=== PATIENT | female | born 1960 | race Caucasian/White ===

== ENCOUNTER 2016-03-24 02:04 | Day surgery (SDC) | payer OTHER ==
[~2016-03-24] VITALS: Ht 167.6 cm; Wt 88.2 kg
[2016-03-24] VITALS (18 sets, daily range): BP systolic 116–158; BP diastolic 68–89; PULSE 68–94; RESP 7–24; O2SAT 87–98
[~2016-03-24 02:04] MED LIST: BUPR150T12 PO; CEFU500T61 PO; CHOL40003 PO; CORRECTOL PO; DICY20TA10 PO; DULO60CA61 PO; HYDR-3740 PO; IMI100 PO; OMEP20CA11 PO; [UNRECOGNIZED DRUG - CODE] PO; chantix PO
[2016-03-24] MEDS ORDERED: Ondansetron 2 mg/mL 2 mL Inj ONE (02:05)
[2016-03-24] MEDS ORDERED: Dexamethasone 4 mg/mL Inj ONE (02:05)
[2016-03-24] MEDS ORDERED: CeFAZolin 2 Gm/50 mL D5W IV Premix IV ONE (06:00)
[2016-03-24 07:33] LABS: BASOPHILS % (AUTO) 0.4 % (0-3); MONOCYTES % (AUTO) 4.5 % (4-12); Mean Corpuscular Hemoglobin 31.7 pg (27.0-35.0); Mean Corpuscular Volume 92.1 fL (81-100); Platelet Count 127 bil/L (150-400)
[2016-03-24 07:46] LABS: INR 0.88 ratio
--- NOTE | 2016-03-24 07:54 | PCM.HPANE ---
Patient Data Surgeon Admitting Provider: Attending Provider:Lisbeth Sidhu MD Primary Care Physician:Curt Schmid Other Provider:Stephon James Anesthesia Reason for Visit Left Staghorn Kidney Stone Ht/WT & BMI Height (Feet): 5 Height (Inches): 6.00 Weight (Kilograms): 86.300 Body Mass Index 30.58 Allergies Coded Allergies: No Known Allergies (Verified Allergy, Unknown, 01/13/16) Past Anesthesia History Anesthesia History: Denies:: Abnormal Airway, Anesthesia Reactions, Difficult Intubation, Fam Anesthesia Reaction, Fam Malignant Hypertherm, Malignant Hyperthermia Diabetes History Hx Diabetes?: No MRSA MRSA: No Medications Hypertension Medication: No Home Meds Incl Beta Iliana: No Reported Medications [Correctol] No Conflict Check20 Mg PO 03/23/16 Ondansetron (Zuplenz)8 Mg Film8 Mg PO Q8H PRN For Nausea 03/21/16 Cholecalciferol (Vitamin D3) (Vitamin D3)4,000 Unit Capsule4,000 Unit PO DAILY 03/21/16 Omeprazole 20 Mg Capsule.dr20 Mg PO DAILY Ref 0 03/21/16 Sumatriptan (Imitrex)100 Mg Vyqoem024 Mg PO Q2H PRN migraine MR x1/ NTE 200mg/24hrs 03/21/16 Hydrocodone-Acetaminophen 10-325 mg 1 Each Tablet0.5-1 Tablet PO Q8H PRN For Pain Ref 0 03/21/16 Duloxetine 60 Mg Capsule.dr60 Mg PO DAILY Ref 0 03/21/16 Dicyclomine 20 Mg Nxqlpu76 Mg PO QID PRN For GI Cramps Ref 0 03/21/16 [chantix] Unknown Strength No Conflict CheckUnknown Dose BID for 3 days 03/21/16 Cefuroxime Axetil (Cefuroxime)500 Mg Ttpedk068 Mg PO Q12H 03/21/16 Bupropion ER 150 Mg Tablet.er150 Mg PO BID Ref 0 03/21/16 Discontinued Reported Medications Amoxicillin 500 Mg Ofhfsik386 Mg PO TID Ref 0 01/13/16 Trazodone 100 Mg Zbmciy221 Mg PO MORNING Ref 0 01/13/16 Cholecalciferol (Vitamin D3) (Vitamin D3)4,000 Unit Capsule4,000 Unit PO DAILY 05/24/15 Ondansetron (Zuplenz)8 Mg Film8 Mg PO TID 05/24/15 Sumatriptan (Imitrex)100 Mg Qvsukr505 Mg PO BID 05/24/15 Hydrocodone-Acetaminophen 10-325 mg 1 Each Tablet0.5-1 Tab PO TID PRN For Pain Ref 0 05/24/15 Omeprazole 20 Mg Capsule.dr20 Mg PO BID Ref 0 04/07/15 Trazodone 100 Mg Lbzjjx212 Mg PO HS #30 TABLET Ref 0 09/02/14 Bupropion 100 Mg Skuptk302 Mg PO TID 30 Days Ref 0 09/02/14 Duloxetine 60 Mg Capsule.dr60 Mg PO DAILY 30 Days Ref 0 09/02/14 Discontinued Scripts Ondansetron ODT 8 Mg Tab.rapdis8 Mg PO QID #20 TABLET Prov:Delmar Michelle MD 01/13/16 Cefuroxime Axetil (Ceftin)500 Mg Mwlhqk878 Mg PO BID #20 TAB Prov:Delmar Michelle MD 01/13/16 History HEENT History: Positive for:: Hearing Problem Denies:: Abnormal Airway Cataracts Difficult Intubation Dysphagia Glaucoma Sinus Problem TMJ Teeth Condition: Missing Teeth Other HEENT Pertinent History: recent implant surgery upper teeth Hx of Heart Problems?: No Cardiovascular History: Denies:: AICD Abdominal Aortic Aneurism Atrial Fibrillation Congestive Heart Failure Edema Heart Murmur Hypertension Irregular Heartbeat Pacemaker Hx of Respiratory Problem?: No Respiratory History: Denies:: Asthma COPD Dyspnea Emphysema Oxygen Administration Pneumonia Tuberculosis Use of C-PAP Machine Use of Inhalers / NEBS Hx Neurologic Problems?: Yes Neurological History: Positive for:: Headaches (migraines) Denies:: CVA Dementia Multiple Sclerosis Parkinson's Disease Seizures (seizures with migraines- last one year ago) Hx of GI Problems?: Yes Gastrointestinal History: Positive for:: Gastroesphageal Reflux (on omeprazole ) Gastrointestinal Bleeding Heartburn Rectal Bleeding Denies:: Cirrhosis Diverticulitis Gall Bladder Disease Hiatal Hernia Liver Disease Hx of Problems?: Yes Genitourinary History: Positive for:: Kidney Stones (left kidney stone current admission problem) Urinary Tract Infection (hx of - not current) Other Pertinent History: past hx kidney stones, passed spontaneously Female Hx: Denies:: Currently (tubal ligation) Problems with Breasts? Skin History: Denies:: History Skin Disorders? Pressure Ulcers Hx Musculoskeletal Problems?: Yes Musculoskeletal History: Positive for:: Back Injury ("lots of back aches") Musculoskeletal Trauma (right knee injury- not yet worked up) Denies:: Degenerative Joint Fibromyalgia Joint Replacement Myasthenia Gravis Osteoarthritis Rheumatoid Arthritis Systemic Lupus Hx of Psycho/Social Problems?: Yes Psycho Social History: Positive for:: Anxiety Hx Depression Hx Surgeries?: Yes (2 C SECTIONS, tubal ) Hx Any Other Health Problems?: Yes Other History: Denies:: Cancer Thyroid Disease History Blood Transfusions: Positive for:: Accept Blood Products? Denies:: Blood Transfuse Reaction Blood Transfusions Hx Diabetes: No Hx Alcohol Use: No (not for 4-5 years ago )Hx Substance Use: Yes (marijuana ( uses with migraines)) Smoking Status: Former Smoker Have You Smoked inLast 12 mo: Yes Stop/Bang Treated for Sleep Apnea?: No Do You Have a CPAP Machine?: No S-Snoring: Do You Snore Loudly: No T-Tired: feel tired, fatigued: Yes O-Obsered: Observed not breath: No P-Blood Pressure: treated: No B- Body Mass Index > 35 kg/m2: No A- Age over 50: Yes N- Neck Large Circumference: No G- Gender Male: No JOSEE Total Score: 2 JOSEE Risk Assessment: Low Risk, <3 Yes Risk Assessment Category Category 1A: Patient has history of documented sleep apnea, and HAS NOT received any narcotic, sedative or anesthesia administration during this stay. Category 1B: Patient has history of documented sleep apnea, and HAS received any narcotic , sedative or anesthesia administration during this stay Category 2: Patient has SUSPECTED Obstructive Sleep Apnea, and HAS received any narcotic , sedative or anesthesia administration during this stay. Category 3: Patient has SUSPECTED Obstructive Sleep Apnea and HAS NOT received narcotic, sedative or anesthesia administration during this stay. Category 4: Outpatient in Procedural Areas with known sleep apnea or who screen positive for High Risk via the STOP/BANG questionnaire. Exam Exam Vital Signs Vital Signs Date Time Temp Pulse Resp B/P Pulse Ox O2 Delivery O2 Flow Rate FiO2 03/24/16 07:23 37.0 77 18 116/68 Room Air General Appearance: Alert, Oriented X3, Cooperative, No Acute Distress HEENT/AIRWAY: MP 2 Lungs: Clear to Auscultation, Normal Air Movement Heart: Exam Unremarkable, Regular Rate/Rhythm, No Murmurs/Rubs/Gallops Meds/Labs/Diagnostics Labs Test 03/24/16 06:50 White Blood Count 6.7th/mm3 (3.8-10.1) Red Blood Count 4.54mil/mm3 (3.90-5.20) Hemoglobin 14.4g/dL (12.0-15.6) Hematocrit 41.8% (35.0-46.0) Mean Corpuscular Volume 92.1fL (81-100) Mean Corpuscular Hemoglobin 31.7pg (27.0-35.0) Mean Corpuscular Hemoglobin Concent 34.4% (32.0-37.0) Red Cell Distribution Width 11.8% (12.3-15.4) Platelet Count 127bil/L (150-400) Neutrophils (%) (Auto) 63.0% (40-74) Lymphocytes (%) (Auto) 28.0% (14-46) Monocytes (%) (Auto) 4.5% (4-12) Eosinophils (%) (Auto) 4.0% (0-5) Basophils (%) (Auto) 0.4% (0-3) Prothrombin Time 9.4sec (8.1-12.5) Prothromb Time International Ratio 0.88ratio Plan Impression Patient chart reviewed, patient interviewed and anesthestic plan with risks, benefits, and alternatives discussed, and informed consent obtained. ASA Physical Status: ASA2 Mod Systemic Disease Anesthetic Plan: GA Bene/Risks/Altern/Consents: Yes HP Complete Prior to Induction: Yes Kevin Gonzales MD Mar 24, 2016 07:54
[2016-03-24] MEDS ORDERED: levoFLOXacin 500 mg/100 mL D5W Premix IV ONE (08:32)
[2016-03-24] MEDS ORDERED: Heparin 5,000 Units/500 mL NS Premix IV ONE (08:49)
[2016-03-24] MEDS ORDERED: fentaNYL-PF 50 mCg/mL 2 mL Inj ONE ×3 (08:49→10:08)
[2016-03-24] MEDS: Lactated Ringer's 1,000 ML IV SCH ×5 (10:21→16:20)
[2016-03-24] MEDS ORDERED: HYDROmorphone 1 mg/mL Inj ONE (11:07)
[2016-03-24] MEDS ORDERED: HYDROmorphone 1 mg/mL Inj IVPUSH ONE (11:10)
[2016-03-24] MEDS ORDERED: Iopamidol-300 50 mL Inj IV ONE (11:53)
[2016-03-24] MEDS ORDERED: Lactated Ringer's 500 ML IV PRN (13:29)
[2016-03-24] MEDS ORDERED: Lactated Ringer's 1,000 ML IV SCH (13:29)
[2016-03-24] MEDS ORDERED: EPHEDrine Sulfate 50 mg/mL Inj IVPUSH PRN (13:30)
[2016-03-24] MEDS ORDERED: Ondansetron 2 mg/mL 2 mL Inj IVPUSH PRN (13:30)
[2016-03-24] MEDS ORDERED: Dexamethasone 4 mg/mL Inj IVPUSH PRN (13:30)
[2016-03-24] MEDS ORDERED: MetoCLOpramide 5 mg/mL 2 mL Inj IVPUSH PRN (13:30)
[2016-03-24] MEDS ORDERED: Phenylephrine 10,000 mCg/mL Inj IVPUSH PRN (13:30)
--- NOTE | 2016-03-24 13:33 | DRSVH ---
PROCEDURE: NEPHROSTOMY WIRE PLACEMENT (P) INDICATIONS: KIDNEY STONE-LT TECHNIQUE: FLUOROSCOPY TIME: 12.7 minutes. Technique: 1. Conscious sedation for 60 minutes. 2. Left percutaneous nephrostomy under fluoroscopic guidance. The indications, alternatives, benefits, risks, and complications of the procedure were explained to the patient. Informed written consent was obtained and placed in the chart. The patient was brought to the angiography suite, and conscious sedation was administered intravenously by fpc s taf, while continuous cardiorespiratory monitoring was performed. Maximum sterile barrier technique was employed per standard protocol, including hand hygiene, cap, ma sk, sterile gown and gloves, and 2% chlorhexidine. One percent lidocaine was used to anesthetize the skin over the area of interest. Using an AccuStick kit, a lower pole left renal calyx was accessed un mary fluoroscopic guidance. The calyx was then opacified with contrast. A micropuncture needle was adv anced into the inferior aspect of the calyx. The wire was advanced centrally. The needle was removed and a micropuncture sheath was advanced into the calyx. An 035 Glidewire was advanced into the centra l portion of the renal collecting system and down the ureter. A glide catheter was advanced over the wire. The wire was exchanged for a stiff 035 Amplatz wire. The catheter and wire were secured in plac e at the skin. COMPARISON: None. FINDINGS: A staghorn calculus is present within the lower pole of the left kidney. IMPRESSION: 1. Status post percutaneous nephrostomy with resultant wire and catheter placement in the left renal collecting system. Dictated by: Sallie Harrison M.D. on 03/24/2016 at 13:27 Approved by: Sallie Harrison M.D. on 03/24/2016 at 13:31
[2016-03-24] MEDS ORDERED: Lactated Ringer's 1,000 ML IV ONE (14:11)
[2016-03-24] MEDS: HYDROmorphone 1 mg/mL Inj IVPUSH PRN ×5 (14:31→23:59)
[2016-03-24] MEDS: fentaNYL-PF 50 mCg/mL 2 mL Inj IVPUSH PRN ×2 (14:32→14:43)
--- NOTE | 2016-03-24 14:44 | PCM.DISURG ---
Surgical Discharge Instruction Date of Service Mar 24, 2016 Dates of Hospitalization Date of Hospital Admission 03/24/16 Providers Admitting Physician: Primary Care Physician: Curt Schmid Attending Physician: Lisbeth Sidhu MD Discharge Diagnosis Discharge Diagnosis LEFT staghorn kidney stone Post Operative diagnosis LEFT staghorn stone Diet Discharge Diet: No restrictions Activity Discharge Activity-General: Try not to overdue, No lifting >10 pounds for 4-6 weeks, No driving while taking narcotic Dressing and Incisional Care Dressing Care: Keep dressing clean, dry & intact Dressing Instructions: The incision site will leak urine/blood tinged urine for a few days Hygiene: May shower, DO NOT soak incision under water, NO bathtub, hot tub or whirlpool Additional Instructions Discharge Instructions F/U [address] Sidhu with LAINE prior Additional Instructions Change dressing as needed. Your dressings might soak and require frequent changes as they become saturated with urine until the incision closes, which will be a few days. This is normal. Follow Up Plan Follow Up Plan 2 wks with LAINE Tanner day of appt. Call your provider for: Fever, Chills, Vomiting, Increasing wound pain, Discharge @ incision, pus discharge Lisbeth Sidhu MD Mar 24, 2016 14:44
--- NOTE | 2016-03-24 15:10 | DRSVH ---
PROCEDURE: X-RAY KUB ([id number]) INDICATIONS: POST LEFT PERC NEPH LITHOSTOMY TECHNIQUE: One view of the abdomen acquired. COMPARISON: [facility], GIANNA, [place], 07/09/2006, 17:15. FINDINGS: Surgical changes and devices: Left percutaneous nephrostomy tube is present as well as a catheter whi ch extends from the left kidney to the level of the urinary bladder. Bowel: Bowel gas pattern is normal. Soft tissues: No suspicious abdominal calcifications. Visualized solid organ contours appear normal in size. Bones: No suspicious bony lesions. IMPRESSION: Left percutaneous nephrostomy tube present as well as ureteral catheter. Dictated by: Juan ZIMMER Interpreted: Nakia Gr MD on 03/24/2016 at 15:09 Transcribed by: JULIA on 03/24/2016 at 15:09 Approved by: Nakia Gr MD, PhD on 03/24/2016 at 16:45
--- NOTE | 2016-03-24 15:15 | DRSVH ---
PROCEDURE: X-RAY NEPHROSTOMY TUBE INSERTION INDICATIONS: LEFT NEPHROSTOLITHOTOMY COMPARISON: [facility], XA, NEPHROSTOMY WIRE PLACEMENT (P), 03/24/2016, 9:05. FINDINGS: 3 submitted images demonstrate staghorn calculus involving the lower pole of the left kidn ey as was seen in prior imaging studies. A percutaneous nephrostomy tube as well as multiple K wires are noted traversing the renal pelvis and the proximal ureter. IMPRESSION: 1. Staghorn calculus involving the lower pole left kidney. 2. Percutaneous nephrostomy tube and multiple guidewires present. Dictated by: Juan ZIMMER Interpreted: Nakia Gr MD on 03/24/2016 at 15:13 Transcribed by: JULIA on 03/24/2016 at 15:14 Approved by: Nakia Gr MD, PhD on 03/24/2016 at 16:50
--- NOTE | 2016-03-24 15:22 | OP ---
[address] [address] OPERATIVE REPORT PATIENT: JM EDMONDSON : 1960 MR#: [id number] ADMIT: 03/24/2016 JOB ID: [id number] DATE OF SURGERY: 03/24/2016 PREOPERATIVE DIAGNOSIS(ES): Left staghorn calculi. POSTOPERATIVE DIAGNOSIS(ES): Left staghorn calculi. PROCEDURE PERFORMED: 1. Left percutaneous nephrolithotomy. 2. Left antegrade ureteral stent placement. 3. Left antegrade nephrostogram. SURGEON: Lisbeth Sidhu MD. [facility]: None. FINDINGS: Left staghorn calculus. ANESTHESIA: General. ESTIMATED BLOOD LOSS: Less than 50 mL. DRAINS: 1. A 5-Czech Pollack ureteral stent. 2. A 20-Czech Councill catheter as a nephrostomy tube. 3. Howard catheter to the bladder. SPECIMENS: Left kidney stone. COMPLICATIONS: None. CONDITION: Stable. INDICATION FOR PROCEDURE: The patient is a 55-year-old woman with left staghorn calculi. After weighing her options and risks and benefits, she wished to move forward with left percutaneous nephrolithotomy. DESCRIPTION OF THE PROCEDURE: After informed consent was obtained, the patient was taken to the operating room. It should be noted that the patient had a left nephrostomy tube and wire placed antegrade down into the bladder by Interventional Radiology. She also had a catheter placed in their department. A time-out was performed, identifying correct patient, surgical site and procedure. General anesthesia was smoothly induced. She was placed in the prone position. All pressure points were identified and appropriately padded. Her back and flank were prepped and draped in the usual sterile fashion. The existing nephrostomy tube was backloaded off of the wire, which again had been placed down to the level of the bladder. An 11 blade was used to incise the skin in a transverse fashion approximately 1.5 to 2 cm. A 10-Czech dual-lumen ureteral catheter was applied over the existing wire to the renal pelvis. A Super Stiff wire was then loaded through it and down into the bladder seen under fluoroscopy. The existing wire that Interventional Radiology had placed was removed and it was replaced with a Sensor tip wire down the 10-Czech dual-lumen catheter. Dual-lumen catheter was then back-loaded off of the wires. A NephroMax balloon loaded with a 30-Czech nephroscope sheath was applied over the Super Stiff wire and it was insufflated to 14 atmospheres of pressure. It was allowed to set for several minutes for dilation. Next, the nephrostomy sheath was loaded over the balloon, which was deflated partially, and brought up to the stone as seen under fluoroscopy. The balloon dilator was then removed. The nephroscope was then used to advance into the kidney. The CyberWand was then used to break up the stone which proceeded smoothly. There were multiple stones, as well as the staghorn stone seen on the CAT scan. Flexible cystoscope was then used for an antegrade pyelogram. The calices were all inspected. Some small stone fragments and residual stone were removed with a Zero Tip Nitinol basket. The ureteropelvic junction was inspected multiple times. There was no disruption there. An antegrade ureterogram was performed. There was no extravasation. A 20-Czech Councill was loaded over the Super Stiff wire through the nephroscope sheath into the renal pelvis. The balloon was insufflated with 2 cc of sterile water. The nephroscope sheath was then peeled away. A 5-Czech open-ended Pollack catheter was then advanced over the Sensor tip wire to the distal ureter as seen under fluoroscopy. Both wires were then subsequently removed. The skin incision was partially closed with a 3-0 chromic in subcutaneous fashion. Then, 2-0 nylon was used to adhere the Pollack and the nephrostomy tube to the patient's skin. Two Kerlix rolls were then placed around it, and foam tape was placed over it for dressing. The patient was then reversed from general anesthesia and taken to PACU in good and stable condition. LENORA
--- NOTE | 2016-03-24 15:39 | PCM.ANEP1 ---
Post Anesthesia Phase 1 PACU Phase 1 Assessment Vital Signs Vital Signs Date Time Temp Pulse Resp B/P Pulse Ox O2 Delivery O2 Flow Rate FiO2 03/24/16 15:36 36.5 81 13 137/73 98 Nasal Cannula 3 03/24/16 15:19 91 14 123/73 96 Nasal Cannula 3 03/24/16 15:10 89 13 130/72 94 Nasal Cannula 3 03/24/16 14:55 36.6 70 7 131/76 97 Nasal Cannula 3 03/24/16 14:40 79 17 126/70 98 Nasal Cannula 3 03/24/16 14:35 91 24 145/79 96 Nasal Cannula 3 03/24/16 14:30 90 14 147/71 98 Simple Mask 8 03/24/16 14:25 92 19 146/74 95 Simple Mask 8 03/24/16 14:23 36.3 71 12 142/75 94 Simple Mask 8 03/24/16 11:11 Supplement Oxygen 03/24/16 10:45 36.3 70 12 146/70 95 Nasal Cannula 3 03/24/16 10:25 68 14 142/84 94 Nasal Cannula 2.00 03/24/16 10:20 71 15 153/76 97 Nasal Cannula 2.00 03/24/16 10:15 71 18 153/76 89 Room Air 03/24/16 10:10 74 18 134/75 87 Room Air 03/24/16 10:05 74 18 125/75 89 Room Air Anesthetic Administered: GA Level of Alertness: Awake, talking MARTINEZ's with Equal Strength: Yes Pain: No Nausea or Vomiting: No Oxygen Delivery: Nasal Cannula Lungs: Clear to Auscultation, Normal Air Movement Dermatome Level: Full Sensation Kevin Gonzales MD Mar 24, 2016 15:39
--- NOTE | 2016-03-24 15:40 | PCM.ANEP2 ---
Post Anesthesia Evaluation ASA/CMS Post Anesthesia VS in Patient's Normal Range?: Yes Resp Stable; Airway Patent?: Yes CV Function & Hydration Stable: Yes Mental Status Recovered?: Yes Pain control Satisfactory?: Yes N/V Control Satisfactory?: Yes Kevin Gonzales MD Mar 24, 2016 15:39
[2016-03-24] MEDS: oxyCODONE-Acetamin 5-325 mg Tablet PO PRN ×2 (18:26→22:43)
--- NOTE | 2016-03-24 19:06 | NUR ---
Arrival to Floor Patient arrived to floor from PACU at 1600. Patient sleepy, but easily abusable, A&O x3. Patient nephrostomy tube and lamas catheter draining to gravity, both with pink tinged serosanguineous output. Bulk dressing in place around nephrostomy tube. Patient on 2L of O2, sats in mid 90s. SCDs in place, ordered fluids hung. Care is ongoing.
[2016-03-25 00:46] VITALS: BP 100/62; PULSE 79; RESP 20; O2SAT 95
[2016-03-25] MEDS: Lactated Ringer's 1,000 ML IV SCH ×4 (02:01→22:30)
[2016-03-25] MEDS: HYDROmorphone 1 mg/mL Inj IVPUSH PRN ×6 (02:30→23:00)
[2016-03-25] MEDS: Ondansetron 2 mg/mL 2 mL Inj IVPUSH PRN ×2 (05:49→20:03)
[2016-03-25] MEDS: oxyCODONE-Acetamin 5-325 mg Tablet PO PRN ×4 (06:10→22:57)
[2016-03-25 07:05] VITALS: BP 106/67; PULSE 79; RESP 20; O2SAT 95
--- NOTE | 2016-03-25 07:43 | NUR ---
Pain Pain poorly managed, patient requiring constant encouragement to take pain medication. Voiced concerns of "Over doing it". Pain escalated quickly consistently all night. Nausea became an issue as a result of PO meds, however denies vomiting.
[2016-03-25] MEDS: buPROPion SR 150 mg ER12 Tablet PO SCH ×2 (09:21→22:56)
[2016-03-25] MEDS: DULoxetine 30 mg DR Capsule PO SCH (09:21)
[2016-03-25 10:11] VITALS: BP 94/57; PULSE 79; RESP 20; O2SAT 95
[2016-03-25 11:37] VITALS: BP 112/67
--- NOTE | 2016-03-25 13:34 | PCM.PNSURG ---
Subjective Date of Service: Mar 25, 2016 Date of Service: Mar 25, 2016 Visit Information: Reason for Visit Left Staghorn Kidney Stone Surgery/Surgery Date Post-Op Day # Date of Admission: Hospital Day # Subjective: Pt is lying in bed at time of exam, reports pain at incision site ongoing since last night, reports she just received oral pain medications. Reports associated nausea, no vomiting, denies any other symptoms at this time. Postop General: No Shortness of Breath, No Chest Pain Gastrointestinal: Good Appetite, Tolerating Oral Feedings, Complains of Nausea Objective Vital Sign- Last 8 Hours Date Time Temp Pulse Resp B/P Pulse Ox O2 Delivery O2 Flow Rate FiO2 03/25/16 11:37 112/67 03/25/16 10:11 37.0 79 20 94/57 95 Room Air 03/25/16 07:05 37.0 79 20 106/67 95 Room Air Intake and Output- Last 8 Hour 03/25/16 Cumulative From/Thru 07:00 03/21/16 17:01 - 03/25/16 06:44 Intake Total 1215 ml 2765 ml Output Total 310 ml Balance 1215 ml 2455 ml IV Total 1215 ml 2765 ml Output Urine Total 310 ml General: Alert, Oriented X3, Mild Distress (due to pain) Neck: Supple Lungs: Normal Air Movement Abdomen: Soft, Non-tender, Non-distended Extremities: Distal Pulses Palpable Neuro: Grossly Neurologically Intact Catheters: None Result Diagram: 03/25/16 0545 03/25/16 0545 Diagnostics: post op XR KUB 02/22/16: Left percutaneous nephrostomy tube present as well as ureteral catheter. Assessment & Plan Impression [id number] who is POD #1 s/p LEFT PNL on 02/22/[address] Sidhu for 2cm LEFT lower pole staghorn stone. Pt tolerated procedure well. There some difficulty adequately controlling pt's pain initially, however pt reports pain in better control. No acute distress. . Problems: Plan 1. Nephrostomy Tube- continue to keep capped, will remove tomorrow morning. 2. Pollack still in place, will remove along with nephrostomy tube tomorrow morning. Please change dressings as needed. 3. Catheter was removed this morning at 8am, pt had not voided at time of visit. Please provide bedside commode or assistance for pt to attempt to void ever 2-3 hours. 4. Pain control- Continue IV Dilaudid with PO Percocet for breakthrough pain 5. Nausea- Continue Zofran prn for nausea 6. Pt ok to discharge home tomorrow, after pollack and nephrostomy tube removed. Marbella Ramsey PA-C Mar 25, 2016 13:34
--- NOTE | 2016-03-25 14:12 | NUR ---
Social Work Note: Screen Note Data & Assessment: EMR reviewed. Patient is a 55 year old female admitted on for left staghorn kidney stone. Pt has [employer] for insurance coverage and sees Curt NOLASCO for primary care. Pt lives in [facility] with spouse and is independent at baseline. No discharge needs identified at this time. SW to continue to follow if any needs arise. Plan: Anticipated discharge home via POV when medically ready. No discharge needs identified at this time. SW to continue to follow if any needs arise. Pooja Tamez, LAURA, ACM
[2016-03-25 18:59] VITALS: BP 116/62; PULSE 90; RESP 20; O2SAT 90
--- NOTE | 2016-03-25 19:19 | NUR ---
Dressing Change, Pain Patient continued to have some flank pain during the shift. Patient reported that the pain decreased as the shift progressed. Dressing around nephrostomy tube found to be saturated, PA made aware, orders received to change dressing. Kerlex rolls applied around tubing, held in place with Hypafix tape, covered with ABD pad and Hypafix tape. Care is ongoing.
[2016-03-25 21:40] VITALS: BP 102/64; PULSE 81; RESP 16; O2SAT 98
--- NOTE | 2016-03-25 23:06 | NUR ---
PAIN; requested pain rx for migraine and abd pain (09/28) and gave dilaudid 2mg iv at 2003. Wash cloth to forehead, refused offer of ice pack, lights remained dim for migraine. Drying drainage on bed sheet- pt refused to turn until pain rx effective- appeared to dose afterwards. At h.s. Dilaudid and percocet, per request for abd pain and before turning to look at incision, and bedding change given.
--- NOTE | 2016-03-25 23:47 | NUR ---
PAIN; dsg changed- pt tolerated well.
[2016-03-26] MEDS: Lactated Ringer's 1,000 ML IV SCH ×2 (00:57→08:16)
[2016-03-26] MEDS: HYDROmorphone 1 mg/mL Inj IVPUSH PRN ×2 (02:34→09:18)
[2016-03-26] MEDS: oxyCODONE-Acetamin 5-325 mg Tablet PO PRN ×3 (03:12→13:29)
[2016-03-26 06:47] VITALS: BP 124/79; PULSE 90; RESP 16; O2SAT 92
[2016-03-26] MEDS: Ondansetron 2 mg/mL 2 mL Inj IVPUSH PRN (07:46)
[2016-03-26] MEDS: buPROPion SR 150 mg ER12 Tablet PO SCH (09:15)
[2016-03-26] MEDS: DULoxetine 30 mg DR Capsule PO SCH (09:16)
--- NOTE | 2016-03-26 10:23 | PCM.PNSURG ---
Subjective Date of Service: Mar 26, 2016 Date of Service: Mar 26, 2016 Visit Information: Reason for Visit Left Staghorn Kidney Stone Surgery/Surgery Date Post-Op Day # 2 Date of Admission: 02/22/16 Hospital Day # 2 Subjective: Pt reports ongoing pain at incision site, better controlled than one day ago. no other complaints at this time. Tolerating PO diet, has voided, no BM, +flatus , denies any ambulation since surgery. Postop General: No Chest Pain Gastrointestinal: Good Appetite, Tolerating Oral Feedings, No N/V Objective Vital Sign- Last 8 Hours Date Time Temp Pulse Resp B/P Pulse Ox O2 Delivery O2 Flow Rate FiO2 03/26/16 06:47 36.9 90 16 124/79 92 Nasal Cannula 2.00 Intake and Output- Last 8 Hour 03/26/16 Cumulative From/Thru 07:00 03/21/16 17:01 - 03/26/16 06:47 Intake Total 1975 ml 7430 ml Output Total 100 ml 1210 ml Balance 1875 ml 6220 ml Intake Oral 800 ml 1960 ml IV Total 1175 ml 5470 ml Output Urine Total 100 ml 1210 ml # Bowel Movements 0 0 General: Alert, Oriented X3 Neck: Supple Lungs: Normal Air Movement Abdomen: Soft, Non-tender Extremities: Distal Pulses Palpable Neuro: Grossly Neurologically Intact Catheters: None Result Diagram: 03/25/16 0545 03/25/16 0545 Assessment & Plan Impression Impression [id number] who is POD #2 s/p LEFT PNL on 02/22/[address] Sidhu for 2cm LEFT lower pole staghorn stone. Pt tolerated procedure well. There some difficulty adequately controlling pt's pain initially, however pt reports pain in better control. No acute distress. . Problems: Plan 1. Nephrostomy Tube and Pollack were removed this morning, incision site dressed with kerlex and hypfix. serosanginous drainage at incision site which is expected, no sign of erythema or infection. Please continue to change dressing as needed and send pt home with kerlex and tape. 2. Catheter was removed one day ago, pt reports she was able to void using bedside commode. 4. Pain control- Will send pt home with oral pain medications 5. Nausea- Continue Zofran prn for nausea 6. Pt will discharge today. Problems: Marbella Ramsey PA-C Mar 26, 2016 10:23
[2016-03-26] MEDS ORDERED: SENN-133 PO (11:08)
--- NOTE | 2016-03-26 17:50 | NUR ---
Discharge, Bowel Movement Patient had one bowel movement this shift. Orders for discharge received. The patient was made aware of the plan and was agreeable to go. The patient was given information on her diagnosis and treatment, signs and symptoms to be aware of, follow up instructions, dressing change directions and supplies, her scripts and information on her new medications. The patient signified understanding of this information and her asymptomatic IV was removed intact. The patient was dressed in her own clothing and her belongings gathered. The patient then ambulated into a wheelchair and was wheeled to the main entrance where she ambulated into a private vehicle. At the time of discharge the patient was alert and oriented, with pain at a tolerable level, surgical dressing clean, dry and intact.
[2016-03-27] MEDS ORDERED: ONDA8TAB10 PO (23:16)
[2016-03-31 13:09] LABS: Stone Color Brown (.)
[2016-06-05] MEDS ORDERED: DICY20TA10 PO (16:48)
[2016-06-05] MEDS ORDERED: DULO60CA61 PO (16:48)
[2016-06-05] MEDS ORDERED: CHOL40003 PO (16:48)
[2016-06-05] MEDS ORDERED: TRAZ-118 PO (16:48)
[2016-06-05] MEDS ORDERED: IMI100 PO (16:48)
[2016-06-05] MEDS ORDERED: OMEP20CA11 PO (16:48)
[2016-06-05] MEDS ORDERED: [UNRECOGNIZED DRUG - CODE] PO (16:48)
[2016-06-05] MEDS ORDERED: VARE1TAB22 PO (16:48)
[2016-06-05] MEDS ORDERED: ACYC400T2 PO (16:48)
[2016-06-05] MEDS ORDERED: BUPR150T12 PO (16:48)
== END 2016-03-26 14:42 | disposition home or self-care (01) ==
LOC: SAS 02:04 → OSC 16:05 → SAS 03-26 14:42
PROVIDERS: ATTEND Urology
DX: N20.0 Calculus of kidney (principal); K21.9 Gastro-esophageal reflux disease without esophagitis; G43.909 Migraine, unspecified, not intractable, without status migrainosus; F41.8 Other specified anxiety disorders; Z87.891 Personal history of nicotine dependence; F12.90 Cannabis use, unspecified, uncomplicated; Z87.440 Personal history of urinary (tract) infections
CPT/HCPCS: 36415; 50081; 50432; 74000; 74485; 80048; 82360; 85014; 85018; 85025; 85610; 86922; C1729; C1769; C1894; J0690; J1100; J1170; J1644; J2250; J2405; J2765; J3010; J7120; Q9967

== ENCOUNTER 2016-03-27 14:24 | Inpatient (IN) | payer MEDICAID, OTHER ==
[~2016-03-27] VITALS: Ht 167.6 cm; Wt 88.1 kg
[~2016-03-27 14:24] MED LIST changes: -CEFU500T61 PO; -CORRECTOL PO; +SENN-133 PO
[2016-03-27 14:50] VITALS: BP 112/69; PULSE 91; RESP 22; O2SAT 92
[2016-03-27] MEDS ORDERED: 0.9% Sodium Chloride 1,000 ML IV ONE (15:41)
--- NOTE | 2016-03-27 15:41 | ED.REPORT ---
HPI-General Illness Date of Service Mar 27, 2016 ED Provider: Moiz Phillips MD Pt is a 55 y/o female presenting to the ED c/o postoperative complications onset today. The patient had a left kidney surgery on Mar [address] Lisbeth Sidhu MD because of a staghorn calculus in which a nephrostomy tube and ureteral stent was placed. The patient came in today because of increasing left flank pain, urinary incontinence, fever, and drainage from the incision in her left flank. Her drainage is described as serosanguineous and purulent. Pt denies N/V/D, abdominal pain, dysuria. Nursing Notes Stated Complaint: KIDNEY STONES/POST SURGERY Chief Complaint: General Complaint Nursing Notes Reviewed: Yes Allergies: Coded Allergies: No Known Allergies (Verified Allergy, Unknown, 03/27/16) Scheduled ([chantix]) Unknown Strength 10 MG PO HS for 3 days Bupropion ER (Bupropion ER) 150 Mg Tablet.er 150 MG PO BID Cholecalciferol (Vitamin D3) (Vitamin D3) 4,000 Unit Capsule 4,000 UNIT PO DAILY Duloxetine (Duloxetine) 60 Mg Capsule.dr 60 MG PO DAILY Omeprazole (Omeprazole) 20 Mg Capsule.dr 20 MG PO DAILY Sennosides (Senna) 8.6 Mg Tablet 17.2 MG PO HS Scheduled PRN Dicyclomine (Dicyclomine) 20 Mg Tablet 20 MG PO QID PRN PRN For GI Cramps Hydrocodone-Acetaminophen 10-325 mg (Hydrocodone-Acetaminophen 10-325 mg) 1 Each Tablet 0.5-1 TABLET PO Q8H PRN PRN For Pain Ondansetron ODT (Ondansetron ODT) 8 Mg Tab.rapdis 8 MG PO [id number] PRN PRN For Nausea Sumatriptan (Imitrex) 100 Mg Tablet 100 MG PO Q2H PRN PRN migraine MR x1/ NTE 200mg/24hrs General Time Seen by MD: 15:38 Chief Complaint Other (Post surg) Hx Obtained From: Patient Arrived By: Walk-in Sudden in Onset?: No Onset Occurred: 5 - 8 hours ago Symptom Duration: Since onset Location: : Abdomen (l flank) Quality: Painful Severity: Current: Mild Severity: Maximum: Mild Recent Healthcare: Recent doctor visit, Previous surgery Past Medical History Past Medical History Notes: PCP: Dr. 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 Physical Exam Vital Signs Vital Signs Date Time Temp Pulse Resp B/P Pulse Ox O2 Delivery O2 Flow Rate FiO2 03/27/16 20:00 38.7 97 16 112/76 86 Room Air 03/27/16 17:03 37.5 78 20 108/60 99 Room Air 03/27/16 14:50 38 91 22 112/69 92 Room Air Initial VS: Reviewed, Vital signs abnormal Head / Eyes: Atraumatic, Normocephalic, PERRL ENT: Mucous membranes moist, Conjunctiva normal, No scleral icterus Neck: Supple, Full range of motion Respiratory: Breath sounds normal, Clear to auscultation, No respiratory distress Cardiovascular: Regular rate & rhythm, Heart sounds normal, Intact distal pulses Abdomen / GI: Soft, Non-tender Extremities: Vascular intact, Neuro intact, No swelling, No tenderness Skin: Warm, Dry, No cyanosis Neurologic: Alert, Oriented, Nonfocal Psychiatric: Mood/affect normal, Behavior normal, Normal thought content General/Constitutional: Awake, Alert, No acute distress, Cooperative, Not toxic appearing Back: Full range of motion, Painless range of motion 1 cm surgical incision overlying left flank with surrounding ecchymosis. Draining serosanguinous fluid that is slightly purulent in appearance. No surrounding erythema or induration. Interpretation & Diagnostics Influenza Negative URINE DIPSTICK: 1.000 sp gravity 9 pH + Leukocytes +30 Protein ++ Moderate Ketones 14 Blood 14 Hemoglobin Otherwise Negative Lab Results Interpretation Result Diagram: 03/27/16 1525 03/28/16 0655 Test 03/27/16 15:25 03/27/16 16:10 03/27/16 18:45 Hold Purple Top Tube Received (Received) Hold Blue Top Tube Received (Received) Magnesium Level 1.7mg/dL (1.6-2.6) Total Bilirubin 0.6mg/dL (0.0-1.2) Aspartate Amino Transf (AST/SGOT) 17U/L (0-50) Alanine Aminotransferase (ALT/SGPT) 10U/L (0-32) Alkaline Phosphatase 71U/L (25-150) Total Protein 6.6g/dL (6.4-8.4) Albumin 3.8g/dL (3.4-5.0) Lipase 11U/L (13-60) Procalcitonin 0.11ng/mL (0.00-0.08) Hold Red Top Tube Received (Received) Hold [place] Top Tube Received (Received) Lactic Acid Level 0.9mmol/L (0.4-2.0) Urine Color Yellow (YELLOW) Urine Appearance Hazy (CLEAR,HAZY) Urine pH 7.5 (5.0-8.0) Urine Specific [place] 1.010 (1.003-1.035) Urine Protein Tracemg/dL (NEG,TRACE) Urine Glucose (UA) Negativemg/dL (NEGATIVE) Urine Ketones 15mg/dL (NEGATIVE) Urine Occult Blood Large (NEGATIVE) Urine Nitrite Negative (NEGATIVE) Urine Bilirubin Negative (NEGATIVE) Urine Urobilinogen Normalmg/dL (NORMAL) Urine Leukocyte Esterase Negative (NEGATIVE) Urine RBC 3-10/hpf (0-2) Urine WBC 0-5/hpf (0-5) Urine Epithelial Cells None/hpf (NONE-MOD) Urine Crystals None seen (NONE SEEN) Urine Bacteria None/hpf (NONE-FEW) Urine Hyaline Casts None/lpf (NONE) Urine Granular Casts None seen (NONE SEEN) Urine Waxy Casts None seen (NONE SEEN) Urine Red Blood Cell Casts None seen (NONE SEEN) Urine White Blood Cell Casts None seen (NONE SEEN) Urine Mucus None seen (None Seen) Urine Trichomonas None seen (NONE SEEN) Urine Yeast None (NONE SEEN) Urinalysis Comment None Urine Culture Reflexed Not indicated X-Ray Chest Interpretation Chest Xray Interpretation: IMPRESSION: Mild bilateral patchy pneumonia pattern. Dictated by: Jayro Barriga M.D. on 03/27/2016 at 18:15 View: AP & lat Interpretation / Wet Read by: Interpret - Radiologist CT Abd / Pelvis Interpretation IMPRESSION: A pattern of left urothelial enhancement and thickening and perinephric edema is present, without evidence of urinary tract obstruction in a pattern that likely reflects some form of urologic intervention removing the large majority of a lower half left renal collecting system staghorn calculus. Several small fragments remain within the lower collecting system of the left kidney, measuring up to 2 x 3 mm. Overlying body wall edema. A small amount of free fluid is seen deep within the pelvis, posteriorly, presumably reactive in origin to the posteriorly urologic intervention recently performed. No abscess is suspected. No urinary tract obstruction is found. The gallbladder is somewhat poorly visualized in terms of its margins, and depending on the clinical status gallbladder ultrasound may be warranted. No calcified gallstone biliary distention is seen. The mild indistinct margination of the gallbladder wall may simply represent motion artifact during image acquisition. Dictated by: Jayro Barriga M.D. on 03/27/2016 at 17:58 Study type: Abdominal CT IV contrast Interpretation / Wet Read by: Interpret - Radiologist Re-Eval/Medical Decision Med Decision/Clinical Course In summary, the patient is a 54-year-old female presenting to the emergency department complaining of left flank pain and drainage from the left flank incision status post percutaneous removal of staghorn calculus [address] Jaramillo. She also reports that she has been having fever and cannot get comfortable. Upon arrival the patient has a temperature of 38 degrees Celsius and appears very uncomfortable. She is without tachycardia or hypotension. She is nontoxic in appearance. Examination of her left flank reveals what appears to be copious drainage of blood-tinged urine. Laboratory studies were notable as below: CBC: Leukocytosis of 12, otherwise unremarkable CMP: unremarkable, good renal function Patient was discussed in depth with her urologist Dr. Jaramillo stated that the patient's level of pain is to be expected after the surgery which she had. Furthermore, she stated that is expected the patient would have a urine leak and that this is not reflective of postoperative complication. Dr. Jaramillo of stated she was not particularly concerned about the patient's fever but that should her urinalysis shows signs of infection that she would recommend treatment with a 7 day course of ciprofloxacin. Dr. Belle and did not feel that the patient required her evaluation at the bedside. CT scan was obtained which was reviewed by Dr. Jaramillo and it was felt to not show any findings of operative complication. Patient was quite uncomfortable and was treated here in the emergency department with IV fluids, hydromorphone for pain and Zofran for nausea. At one point she became quite upset requesting a different nurse. I evaluated the patient at the bedside and she was quite tearful and seemed very upset about the drainage from her surgical site in the amount of pain she was in. I administered additional pain medications and reassured the patient that we would discuss this with her surgeon and addressed her issues to the best of our abilities. She seems to be happy with this. Patient was signed out to oncoming physician pending final CT read by radiologist, urinalysis. Plan for discharge with oral pain medications and antibiotics as needed versus admission for further pain management upon reassessment. Source of Hx: Old records Time of Eval: 17:08 Re-Evaluation/Progress Note: The patient became very angry and requested a nurse change and was unhappy with her care. She is refusing treatment and CT scan at this time. Time of Eval: 18:59 Patient Status: Condition improved Re-Evaluation/Progress Note: Dr. Morris rechecked patient. Discussed with patient CT and x-ray results, diagnosis, and plan for discharge. Follow-up and return to the ER instructions given. Patient agrees with plan for care and all questions were addressed. Time of Eval: 19:57 Patient Status: Condition improved Re-Evaluation/Progress Note: Dr. Morris rechecked patient. Time of Eval: 20:26 Re-Evaluation/Progress Note: Patient rechecked by Dr. Morris. Her O2 sats are low at rest. Discussed diagnosis and new plan for admit. Patient agrees with plan for care and all questions were addressed. Consultation #1: Referral / Consult Name: Monty Silver MD Consulted With: Urology Call Returned at: 16:43 Forge Tender: Agrees with eval, Agrees with plan Note: Case discussed. Recommends CT. Recommends we discuss case with Dr. Sidhu. Consultation #2: Referral / Consult Name: Lisbeth Sidhu MD Consulted With: Urology Call Returned at: 17:10 Forge Tender: Agrees with eval, Agrees with plan Note: Case discussed. Recommends UA and chest x-ray. She does not want to come see the pt because she is in the OR. She is not concerned about fever. She thinks that her level of pain is normal for this type of surgery. Consultation #3: Referral / Consult Name: Monty Silver MD Consulted With: Urology Call Returned at: 18:48 Forge Tender: Agrees with eval, Agrees with plan Note: Care assumed by Dr. Morris, who discussed patient's case with Dr. Silver Consultation #4: Referral / Consult Name: Monty Silver MD Consulted With: Urology Call Returned at: 20:53 Forge Tender: Agrees with eval, Agrees with plan Note: Dr. Morris discussed new plan for admit with Dr. Silver Consultation #5: Referral / Consult Name: Tri Chaves DO Consulted With: Hospitalist Call Returned at: 21:59 Forge Tender: Agrees with eval, Agrees with plan, Accepts admit Counseled Regarding: Diagnosis, Lab results, Need for admission Discharge & Departure Primary Impression: Staghorn calculus Additional Impressions: Left flank pain Postoperative pain Leukocytosis Leukocytosis type: unspecified Qualified Code: D72.829 - Elevated white blood cell count, unspecified Fever Fever type: unspecified Qualified Code: R50.9 - Fever, unspecified Pneumonia Pneumonia type: due to unspecified organism Laterality: bilateral Lung location: lower lobe of lung Qualified Code: J18.9 - Pneumonia, unspecified organism Hypoxia Disposition: ADMITTED TO HOSPITAL Discharge Condition All VS Reviewed: Yes Condition: Stable Referrals: Curt Schmid (PCP) Lisbeth Sidhu MD Care Transferred to: Dr. Silvestre Morris DO Care Transferred at: 18:10 [facility] Attestation Portions of this note were transcribed by Jose Salgado. Dr. Jacqueline Callaway personally performed the history, physical exam and medical decision-making; I reviewed and confirmed the accuracy of the information in the transcribed note. Signed by Ruth Ann Kelly, 03/27/16 - 1730 Portions of this note were transcribed by Shelbi White. Dr. Alexandra Callaway, personally performed the history, physical exam, and medical decision-making; I reviewed and confirmed the accuracy of the information in the transcribed note. Signed by: Ruth Ann Anguiano, 03/27/2016, 22:02 copies to: Curt Schmid; Lisbeth Sidhu MD, Beck O MD Mar 27, 2016 15:41 JOSE SALGADO Mar 27, 2016 16:33 SHELBI WHITE Mar 27, 2016 19:08 Time of Eval: 18:59 Patient Status: Condition improved Re-Evaluation/Progress Note: Dr. Morris rechecked patient. Discussed with patient CT and x-ray results, diagnosis, and plan for discharge. Follow-up and return to the ER instructions given. Patient agrees with plan for care and all questions were addressed. Time of Eval: 19:57 Patient Status: Condition improved Re-Evaluation/Progress Note: Dr. Morris rechecked patient. Time of Eval: 20:26 Re-Evaluation/Progress Note: Patient rechecked by Dr. Morris. Her O2 sats are low at rest. Discussed diagnosis and new plan for admit. Patient agrees with plan for care and all questions were addressed. Consultation #1: Referral / Consult Name: Monty Silver MD Consulted With: Urology Call Returned at: 16:43 Forge Tender: Agrees with eval, Agrees with plan Note: Case discussed. Recommends CT. Recommends we discuss case with Dr. Sidhu. Consultation #2: Referral / Consult Name: Lisbeth Sidhu MD Consulted With: Urology Call Returned at: 17:10 Forge Tender: Agrees with eval, Agrees with plan Note: Case discussed. Recommends UA and chest x-ray. She does not want to come see the pt because she is in the OR. She is not concerned about fever. She thinks that her level of pain is normal for this type of surgery. Consultation #3: Referral / Consult Name: Monty Silver MD Consulted With: Urology Call Returned at: 18:48 Forge Tender: Agrees with eval, Agrees with plan Note: Care assumed by Dr. Morris, who discussed patient's case with Dr. Silver Consultation #4: Referral / Consult Name: Monty Silver MD Consulted With: Urology Call Returned at: 20:53 Forge Tender: Agrees with eval, Agrees with plan Note: Dr. Morris discussed new plan for admit with Dr. Silver Consultation #5: Referral / Consult Name: Tri Chaves DO Consulted With: Hospitalist Call Returned at: 21:59 Forge Tender: Agrees with eval, Agrees with plan, Accepts admit Counseled Regarding: Diagnosis, Lab results, Need for admission Discharge & Departure Primary Impression: Staghorn calculus Additional Impressions: Left flank pain Postoperative pain Leukocytosis Leukocytosis type: unspecified Qualified Code: D72.829 - Elevated white blood cell count, unspecified Fever Fever type: unspecified Qualified Code: R50.9 - Fever, unspecified Pneumonia Pneumonia type: due to unspecified organism Laterality: bilateral Lung location: lower lobe of lung Qualified Code: J18.9 - Pneumonia, unspecified organism Hypoxia Disposition: ADMITTED TO HOSPITAL Discharge Condition All VS Reviewed: Yes Condition: Stable Referrals: Curt Schmid (PCP) Lisbeth Sidhu MD Care Transferred to: Dr. Silvestre Morris, Care Transferred at: 18:10 [facility] Attestation Portions of this note were transcribed by Jose Salgado. Dr. Jacqueline Callaway personally performed the history, physical exam and medical decision-making; I reviewed and confirmed the accuracy of the information in the transcribed note. Signed by Ruth Ann Kelly, 03/27/16 - 173 Portions of this note were transcribed by Shelbi White. I, Dr. Morris, personally performed the history, physical exam, and medical decision-making; I reviewed and confirmed the accuracy of the information in the transcribed note. Signed by: Ruth Ann Anguiano, 03/27/2016, 22:02 copies to: Curt Schmid; Lisbeth Sidhu MD, Beck O MD Mar 27, 2016 15:41 JOSE SALGADO Mar 27, 2016 16:33 SHELBI WHITE Mar 27, 2016 19:08 Signed by: Ruth Ann Anguiano, 03/27/2016, 19:35 copies to: Curt Schmid; Lisbeth Sidhu MD, Beck O MD Mar 27, 2016 15:41 JOSE SALGADO Mar 27, 2016 16:33 SHELBI WHITE Mar 27, 2016 19:08
[2016-03-27] MEDS ORDERED: Ondansetron 2 mg/mL 2 mL Inj IVPUSH ONE (15:45)
[2016-03-27 15:52] LABS: BASOPHILS % (AUTO) 0.2 % (0-3); EOSINOPHILS % (AUTO) 2.8 % (0-5); MONOCYTES % (AUTO) 6.2 % (4-12); Mean Corpuscular Hemoglobin 31.7 pg (27.0-35.0); Mean Corpuscular Volume 92.8 fL (81-100); NEUTROPHILS % (AUTO) 77.5 % (40-74); Platelet Count 229 bil/L (150-400)
[2016-03-27 15:58] LABS: Magnesium 1.7 mg/dL (1.6-2.6)
[2016-03-27] MEDS: HYDROmorphone 0.5 mg/0.5 mL iSecure Syringe IVPUSH PRN ×3 (16:01→18:59)
[2016-03-27 17:03] VITALS: BP 108/60; PULSE 78; RESP 20; O2SAT 99
[2016-03-27] MEDS ORDERED: HYDROmorphone 1 mg/mL Inj ONE (17:03)
[2016-03-27] MEDS ORDERED: HYDROmorphone 1 mg/mL Inj IVPUSH ONE (17:05)
[2016-03-27] MEDS ORDERED: Promethazine Inj 12.5 MG in Dextrose 5%-Pha MIX 50 ML IV ONE (18:05)
--- NOTE | 2016-03-27 18:06 | DRSVH ---
PROCEDURE: CT ABDOMEN AND PELVIS WITH CONTRAST ([id number]) INDICATIONS: abd pain, recent urologic surgery TECHNIQUE: After the administration of intravenous contrast, 5 mm thick sections acquired from the diaphragm to the symphysis. 5 mm coronal and sagittal reformats were acquired. For radiation dose reduction, the following was used: automated exposure control, adjustment of mA and/or kV according to patient elena hu. COMPARISON: [facility], CT, CT ABD PELVIS W CON, 01/13/2016, 21:42. FINDINGS: Image quality: Excellent. ABDOMEN: Lung bases: Lung bases are abnormal with a mild patchy alveolar prominence pattern, potentially a ma nifestation of early patchy pneumonia. Heart size is normal. Solid organs: Liver and spleen are normal in size and enhancement. Gallbladder appears free of calc ific gallstones. Accurate assessment for noncalcified gallstones and gallbladder wall thickening is somewhat limited.. Biliary system is non dilated. Pancreas enhances normally. No adrenal nodules. Kidneys demonstrate normal size and enhancement, without hydronephrosis, but there is abnormal edema along the borders of the left renal pelvis, and proximal left ureter. Several small renal collectin g system calculi are present, but much improved from the comparison study 01/13/16. At that time a lo wer pole staghorn calculus has been present. The appearance may represent postsurgical change, and t here is edema over the flank region on the left which would support that circumstance. More inferior ly, within the retroperitoneum, no definite ureteral distention is found. Peritoneum and bowel: Bowel loops demonstrate normal wall thickness and caliber. No free fluid or a ir. Nodes and vessels: No retroperitoneal or mesenteric adenopathy by size criteria. Aorta and inferior vena cava are normal in size. Miscellaneous: No ventral hernias. PELVIS: Genitourinary: Bladder wall thickness is normal. Miscellaneous: No inguinal hernias or adenopathy. Bones: No suspicious bony lesions. No vertebral body compression fractures. IMPRESSION: A pattern of left urothelial enhancement and thickening and perinephric edema is present , without evidence of urinary tract obstruction in a pattern that likely reflects some form of urolog ic intervention removing the large majority of a lower half left renal collecting system staghorn roni culus. Several small fragments remain within the lower collecting system of the left kidney, measuri ng up to 2 x 3 mm. Overlying body wall edema. A small amount of free fluid is seen deep within the pelvis, posteriorly, presumably reactive in orig in to the posteriorly urologic intervention recently performed. No abscess is suspected. No urinary tract obstruction is found. The gallbladder is somewhat poorly visualized in terms of its margins, and depending on the clinical status gallbladder ultrasound may be warranted. No calcified gallstone biliary distention is seen. The mild indistinct margination of the gallbladder wall may simply represent motion artifact during i mage acquisition. Dictated by: Jayro Barriga M.D. on 03/27/2016 at 17:58 Approved by: Jayro Barriga M.D. on 03/27/2016 at 18:04
[2016-03-27] MEDS ORDERED: Peds - CefTRIAXone 40 mg/mL 2,000 MG in Syringe 1 EACH IV ONE (18:10)
--- NOTE | 2016-03-27 18:17 | DRSVH ---
PROCEDURE: X-RAY CHEST, TWO VIEWS ([id number]) INDICATIONS: fever, rule out pna TECHNIQUE: 2 views of the chest were acquired. COMPARISON: [facility], CT, CT ABD PELVIS W CON, 03/27/2016, 17:09. [facility] al, CT, CT CHEST W CON, 03/25/2015, 11:48. [facility], CR, XR CHEST 2VW, 03/22/2015, 11:5 4. FINDINGS: Surgical changes and devices: None. Lungs and pleura: No pleural effusions or pneumothorax. Lungs are abnormal with a mild patchy pneum onia pattern, and reduced inspiratory volume. The pneumonia appearance is best seen on the frontal p rojection.. Mediastinum: Mediastinal contours are normal. Heart size is normal. Bones and chest wall: No suspicious bony abnormalities. Soft tissues appear unremarkable. IMPRESSION: Mild bilateral patchy pneumonia pattern. Dictated by: Jayro Barriga M.D. on 03/27/2016 at 18:15 Approved by: Jayro Barriga M.D. on 03/27/2016 at 18:15
[2016-03-27] MEDS ORDERED: cefTRIAXone 2,000 mg/D5W 50 mL IV Minibag Plus IV ONE ×2 (18:35)
[2016-03-27] MEDS ORDERED: cefTRIAXone Inj 2,000 MG in Dextrose 5% Minibag Plus 50 ML IV ONE (18:45)
[2016-03-27 19:00] LABS: APPEARANCE,URINE HAZY (CLEAR,HAZY); COLOR,URINE YELLOW (YELLOW); OCCULT BLOOD,URINE LARGE (NEGATIVE); PH,URINE 7.5 (5.0-8.0); UROBILINOGEN,URINE NORMAL (NORMAL)
[2016-03-27 20:00] VITALS: BP 112/76; PULSE 97; RESP 16; O2SAT 86
[2016-03-27] MEDS ORDERED: Albuterol 2.5 mg/3 mL Inhalation Solution NEB PRN (22:00)
[2016-03-27 23:15] VITALS: PULSE 90
[2016-03-27] MEDS ORDERED: ONDA8TAB10 PO (23:16)
--- NOTE | 2016-03-27 23:34 | PCM.HPMED ---
Subjective Date of Service Mar 27, 2016 Primary Provider: Admitting Physician: Tri Chaves DO Primary Care Physician: Curt Schmid Attending Physician: Tri Chaves DO Admit Status: From the Emergency Department Chief Complaint: Left flank pain s/p nephrostomy tube placement History of Present Illness: Pt is a 55 y/o female presenting to the ED c/o postoperative complications onset today. The patient had a left kidney surgery on Mar [address] Lisbeth Sidhu MD because of a staghorn calculus in which a left-sided nephrostomy tube and left-sided ureteral stent was placed. The patient came in today because of increasing left flank pain rated 10 out of 10 in this worst and both sharp and dull, urinary incontinence, fever, cough productive green sputum onset 3 days ago, nausea, vomiting and drainage from the incision in her left flank. Her drainage is described as serosanguineous and purulent. Currently denies abdominal pain, dysuria, nausea, vomiting. Vital signs in the ED temperature 38.7, pulse 97, respiratory rate 16, O2 sat 86 % on room air. Chemistry panel: Sodium 138, potassium 3.6, chloride 96, carbon dioxide 27, creatinine 0.68, Actiq acid 0.9, and otherwise normal chemistry panel Hemogram: Blood cells 12.0, neutrophils 77.5, lymphs 13.1 UA: Significant for occult blood large Influenza screen was negative. Review of Systems: a complete of review of systems was conducted and was found negative with exception of that mentioned in the history of present illness Allergies Coded Allergies: No Known Allergies (Verified Allergy, Unknown, 03/27/16) Home Medications ([chantix]) Unknown Strength Unknown Dose BID Bupropion ER (Bupropion ER) 150 Mg Tablet.er 150 MG PO BID Cholecalciferol (Vitamin D3) (Vitamin D3) 4,000 Unit Capsule 4,000 UNIT PO DAILY Duloxetine (Duloxetine) 60 Mg Capsule. 60 MG PO DAILY Omeprazole (Omeprazole) 20 Mg Capsule.dr 20 MG PO DAILY Sennosides (Senna) 8.6 Mg Tablet 17.2 MG PO HS Scheduled PRN Dicyclomine (Dicyclomine) 20 Mg Tablet 20 MG PO QID PRN PRN For GI Cramps Hydrocodone-Acetaminophen 10-325 mg (Hydrocodone-Acetaminophen 10-325 mg) 1 Each Tablet 0.5-1 TABLET PO Q8H PRN PRN For Pain Ondansetron (Zuplenz) 8 Mg Film 8 MG PO Q8H PRN PRN For Nausea Sumatriptan (Imitrex) 100 Mg Tablet 100 MG PO Q2H PRN PRN migraine PMH Depression Anxiety Kidney Infections gallbladder disease IBS Dumping syndrome GERD Surgical History 2x Oral Surgery Nephrostomy L kidney 03/23/2016 L ureteral stent 03/23/2016 Social History Hx Alcohol Use: No (not for 4-5 years ago ) Hx Substance Use: Yes (marijuana (uses with migraines)) Smoking Status: Former Smoker Exam Vital Signs Vital Sign - Last Date Time Temp Pulse Resp B/P Pulse Ox O2 Delivery O2 Flow Rate FiO2 03/27/16 20:00 38.7 97 16 112/76 86 Room Air Exam General: Alert and oriented 3, no acute distress, resting comfortably in bed HEENT: Normocephalic atraumatic, PERRLA, EOMI, neck is supple no adenopathy, no JVD, no masses, throat noninjected, no erythema Lungs: Mild crackles right side greater than left Heart: Regular rate and rhythm no murmur Abdomen: Bowel sounds present, abdomen soft nontender Genitourinary: Intact left flank nephrostomy bag draining clear serosanguineous fluid Extremities: Pulses equal and symmetric bilaterally upper/lower extremity, no edema Skin: Posterior back with descended tape rash Neurologic: Cranial nerves II through XII grossly intact bilaterally Lab and Diagnostics Result Diagram: 03/27/16 1525 03/27/16 1525 Assessment & Plan This is a 55 y/o F who presented to the ED with c/o postoperative complications s/p left flank nephrosotomy and left ureteral stent onset today. Surgery was on Mar 24. Patient was found to have elevated WBC's12.0 and CXR significant for b /l pneumonia. Patient was admitted for healthcare acquired pneumonia. # Acute Sepsis, present on admission, active -Source is likely pneumonia given XCR results, and negative UA -WBC 12,000 could be reactive from procedure, infectious also on differential -Vital signs in the ED temperature 38.7, BP 112/76, pulse 97, respiratory rate 16, O2 sat 86% on room air. - V fluids NS as need for hypotension -Antibiotics as above # HCAP, present on admission, active -CBC with Diff showed elevated white count 12.0, CMP within normal limits, UA positive for large occult blood, -CXR (+ Mild bilateral patchy pneumonia pattern.) -Blood Cx X 2 ordered and pending -Procalcitonin ordered and pending -Start vancomycin and cefepime, day shift to de-escalate as deemed necessary -Acetominophen for fever control -We will consider Infectious Disease consult if necessary -IV Saline fluids if needed for hypotension -Sputum cx ordered and pending -Viral PCR ordered and pending -Legionella, strep pneumo urine antigen ordered and pending # Status post left flank nephrostomy and ureteral stent, present on admission, active -This is patient's chief complaint her presentation to ED. Surgery was on Mar 24 -CT abdomen pelvis:A left urothelial enhancement and thickening and perinephric edema is present, without evidence of urinary tract obstruction in a pattern that likely reflects some form of urologic intervention removing the large majority of a lower half left renal collecting system staghorn calculus. Several small fragments remain within the lower collecting system of the left kidney, measuring up to 2 x 3 mm. Overlying body wall edema. A small amount of free fluid is seen deep within the pelvis, posteriorly, presumably reactive in origin to the posteriorly urologic intervention recently performed. No abscess is suspected. No urinary tract obstruction is found. -Per urology patient's symptoms of flank pain and signs of drainage are to be expected given her recent procedure. -Pain control Dilaudid IV 0.5-1 mg every 4 hours when necessary -We will continue to monitor -Urology consult in the a.m. Chronic Problems # Anxiety/Depression, stable -Continue home medication # Gallbladder disease, stable # IBS, stable # Dumping syndrome, stable # GERD, stable -Continue home medication # Former Smoker, stable -Nicotine patch Disposition: Patient was admitted for healthcare associated pneumonia and fever. CODE STATUS: Full code subQ Heparin 5000 units Q8H Bowel care with Senna and stool softeners Curt Schmid (PCP) Pain Evaluation: Adequate Pain Control GI Prophylaxis: Proton Pump Inhibitor VTE Prophylaxis: Sub-Q Heparin (Unfractionated) Resuscitation Status: CPR: Attempt Resuscitation Attending Statement The patient was seen and examined together with house staff on 03/28/2016 and I agree with the history, exam and plan as outlined in the note above. Justin Zapata DO Mar 27, 2016 22:37 Tri Chaves DO Mar 28, 2016 03:20
[2016-03-27] MEDS ORDERED: SUMATRIPTAN 100 MG PO PRN (23:35)
[2016-03-27] MEDS ORDERED: Ondansetron 8 mg ODT Tablet PO PRN (23:35)
[2016-03-27 23:53] VITALS: BP 101/65; PULSE 92; RESP 18; O2SAT 96
[2016-03-27] MEDS: Vancomycin Dose per Pharmacist XX SCH (23:55)
[2016-03-28] VITALS (8 sets, daily range): BP systolic 103–132; BP diastolic 65–80; PULSE 77–89; RESP 16–18; O2SAT 90–97
--- NOTE | 2016-03-28 | NUR ---
Admit: Pt arrived from ER, able to transfer self to bed. Alert and oriented x3. Pt has an ostomy bag placed over puncture wound from surgery last week, the bag was placed in the ER as pt was using ABD pads and skin around incision is red and rashy. CPOX in place, pt is on 2L NC SpO2 high 90s. Pt oriented to room and call light. Medicated x1 with IV Dilaudid, stated pain later was "calm" and no medication was needed.
[2016-03-28] MEDS: Heparin 5,000 Unit/mL Inj SUBQ SCH ×3 (00:25→15:55)
[2016-03-28] MEDS: HYDROmorphone 0.5 mg/0.5 mL iSecure Syringe IVPUSH SCH ×3 (00:26→07:57)
[2016-03-28] MEDS ORDERED: Vancomycin Inj 1,750 MG in Dextrose 5% 500 ML IV ONE (01:30)
[2016-03-28] MEDS ORDERED: 0.9% Sodium Chloride 250 ML ONE (02:15)
[2016-03-28] MEDS: DULoxetine 30 mg DR Capsule PO SCH ×2 (02:23→07:57)
[2016-03-28] MEDS: buPROPion SR 150 mg ER12 Tablet PO SCH ×3 (02:23→20:39)
--- NOTE | 2016-03-28 06:44 | NUR ---
Med not available: AM protonix not in pt's drawer/omnicell. Communication sent to pharmacy.
[2016-03-28] MEDS: Pantoprazole 40 mg ER24 Tablet PO SCH (07:56)
[2016-03-28] MEDS: guaiFENesin 600 mg ER12 Tablet PO SCH ×2 (07:58→20:39)
[2016-03-28] MEDS ORDERED: levoFLOXacin Inj 750 MG in IV Premix 1 EACH IV SCH (08:30)
[2016-03-28] MEDS ORDERED: Cefepime Inj 1,000 MG in Dextrose 5% Minibag Plus 50 ML IV SCH (08:30)
[2016-03-28] MEDS: Vancomycin Dose per Pharmacist XX SCH (08:30)
[2016-03-28 09:21] LABS: BASOPHILS % (AUTO) 0.8 % (0-3); EOSINOPHILS % (AUTO) 5.1 % (0-5); MONOCYTES % (AUTO) 8.1 % (4-12); Mean Corpuscular Hemoglobin 32.4 pg (27.0-35.0); Mean Corpuscular Volume 91.5 fL (81-100); NEUTROPHILS % (AUTO) 66.9 % (40-74); Platelet Count 213 bil/L (150-400)
--- NOTE | 2016-03-28 10:30 | NUR ---
Pain medication Pt reports IV Dilaudid is not managing L lower flank pain. Distant Hx of IV drug use. MD notified, New order received. Will continue to monitor Addendum: 03/28/16 at 1219 by MITZI GARCIA RN 1 tab PO Percocet and Vistaril given with decreased pain level. Pt is resting comfortably, call light with in reach. Will continue to monitor.
[2016-03-28] MEDS: hydrOXYzine Pamoate 25 mg Capsule PO PRN ×2 (11:02→20:42)
[2016-03-28] MEDS: oxyCODONE-Acetamin 5-325 mg Tablet PO PRN ×3 (11:04→20:44)
--- NOTE | 2016-03-28 11:30 | NUR ---
nausea Pt complains of increased nausea. Clear soda, ice pack and emesis bag given. No emesis noted. Nausea resolved. Pt declined offer of anti nausea medication. Frequent rounding in place, will continue to monitor.
--- NOTE | 2016-03-28 13:20 | PCM.PNMED ---
Subjective Date of Service Mar 28, 2016 Subjective Pt is a 55 y/o female presenting to the ED c/o postoperative complications that started the day of admission. The patient had a left kidney surgery on Mar [address] Lisbeth Sidhu MD because of a staghorn calculus in which a left-sided nephrostomy tube and left-sided ureteral stent was placed. She was concerned about the drainage which appears normal however patient met sepsis criteria for temperature and WBC of 12,000. This morning patient continues to have flank pain bilaterally, shortness of breath. She is not experiencing any headache or dizziness, she has been afebrile overnight and continues to be on cefepime and vancomycin. She had a dose of vancomycin and ceftriaxone in the emergency department. Exam Vital Signs Vital Sign - Last Date Time Temp Pulse Resp B/P Pulse Ox O2 Delivery O2 Flow Rate FiO2 03/28/16 04:20 36.8 77 18 115/66 97 Nasal Cannula 2.00 Intake and Output 03/27/16 03/27/16 03/28/16 Cumulative From/Thru 15:00 23:00 07:00 03/27/16 14:50 - 03/28/16 06:15 Intake Total 550 ml 550 ml Balance 550 ml 550 ml Intake IV Total 550 ml 550 ml Exam General: Alert and oriented 3, no acute distress HEENT: Normocephalic atraumatic, PERRLA, neck is supple no adenopathy, no JVD, no masses, no erythema, mucous membranes moist Lungs: Clear to auscultation bilaterally. Heart: Regular rate and rhythm no murmur Abdomen: Bowel sounds present, abdomen soft nontender Genitourinary: Intact left flank nephrostomy bag draining clear serosanguineous fluid, mild costovertebral angle tenderness bilaterally Extremities: Pulses equal and symmetric bilaterally upper/lower extremity, no edema Skin: Posterior back with descended tape rash Neurologic: Cranial nerves II through XII grossly intact IVs and Medications Medications Reviewed: Medications were reviewed in detail Lab and Diagnostics Procalcitonin 0.10 Result Diagram: 03/27/16 1525 03/27/16 1525 X-Rays, CTs and MRIs PROCEDURE: X-RAY CHEST, TWO VIEWS ([id number]) IMPRESSION: Mild bilateral patchy pneumonia pattern. Dictated by: Jayro Barriga M.D. on 03/27/2016 at 18:15 PROCEDURE: CT ABDOMEN AND PELVIS WITH CONTRAST ([id number]) IMPRESSION: A pattern of left urothelial enhancement and thickening and perinephric edema is present, without evidence of urinary tract obstruction in a pattern that likely reflects some form of urologic intervention removing the large majority of a lower half left renal collecting system staghorn calculus. Several small fragments remain within the lower collecting system of the left kidney, measuring up to 2 x 3 mm. Overlying body wall edema. A small amount of free fluid is seen deep within the pelvis, posteriorly, presumably reactive in origin to the posteriorly urologic intervention recently performed. No abscess is suspected. No urinary tract obstruction is found. The gallbladder is somewhat poorly visualized in terms of its margins, and depending on the clinical status gallbladder ultrasound may be warranted. No calcified gallstone biliary distention is seen. The mild indistinct margination of the gallbladder wall may simply represent motion artifact during image acquisition. Dictated by: Jayro Barriga M.D. on 03/27/2016 at 17:58 12-lead ECG sinus rhythm at a rate of 78 Assessment & Plan This is a 55 y/o F presented to the ED with c/o postoperative complications s/p left flank nephrostomy and left ureteral stent that she noticed on the day of admission. Surgery was on Mar 24. Patient was found to have elevated WBC' s12.0 and CXR significant for b/l pneumonia. Patient was admitted for healthcare acquired pneumonia. 1. Acute Sepsis, present on admission, active -Source is likely pneumonia given XCR results, and negative UA -WBC 12,000 could be reactive from procedure, infectious also on differential -Vital signs in the ED temperature 38.7, BP 112/76, pulse 97, respiratory rate 16, O2 sat 86% on room air. -IV fluid bolus of 1 L given in the emergency department, adequate oral intake of fluid. -Antibiotics currently vancomycin and cefepime. -Infectious disease consult team, we appreciate their input. 2. HCAP, present on admission, active -CBC with Diff showed elevated white count 12.0, CMP within normal limits, UA positive for large occult blood, -CXR (+ Mild bilateral patchy pneumonia pattern.) -Blood Cx X 2 ordered and pending -Procalcitonin 0.11, repeat 0.10 -vancomycin and cefepime- ID consult team -Acetaminophen for fever control -IV Saline fluids if needed for hypotension, not necessary at this time -Sputum cx ordered and pending -Viral PCR negative -Legionella, strep pneumo urine antigen both negative 3. Status post left flank nephrostomy and ureteral stent, present on admission, active -Surgery was on Mar 24 -CT abdomen pelvis:A left urothelial enhancement and thickening and perinephric edema is present, without evidence of urinary tract obstruction in a pattern that likely reflects some form of urologic intervention removing the large majority of a lower half left renal collecting system staghorn calculus. Several small fragments remain within the lower collecting system of the left kidney, measuring up to 2 x 3 mm. Overlying body wall edema. A small amount of free fluid is seen deep within the pelvis, posteriorly, presumably reactive in origin to the posteriorly urologic intervention recently performed. No abscess is suspected. No urinary tract obstruction is found. -Per urology patient's symptoms of flank pain and signs of drainage are to be expected given her recent procedure. -Pain control 1-2 Percocet 5/325 mg every 4 hours when necessary -We will continue to monitor -Urology consult in the a.m. Chronic Problems 4. Anxiety/Depression, stable -Continue home medication 5. Gallbladder disease, stable 6. IBS, stable 7. Dumping syndrome, stable 8. GERD, stable -Continue home medication 9. Former Smoker, stable -Nicotine patch Disposition: Patient was admitted for healthcare associated pneumonia and fever. CODE STATUS: Full code subQ Heparin 5000 units Q8H Bowel care with Colace and MiraLAX senna when necessary Curt Schmid (PCP) Pain Evaluation: Adequate Pain Control GI Prophylaxis: Proton Pump Inhibitor VTE Prophylaxis: Sub-Q Heparin (Unfractionated) VTE Mechanical Devices: Intermittant Pneumatic CD Resuscitation Status: CPR: Attempt Resuscitation Attending Statement The patient was seen and examined together with Dr. Martinez on 03/28/2016 and I agree with the history, exam and plan as outlined in the note above. Jeanette Martinez DO Mar 28, 2016 06:51 Epifanio De Souza MD Mar 29, 2016 10:26
[2016-03-28] MEDS: Polyethylene Glycol (PEG) 17 Gm Powder PO SCH (13:35)
[2016-03-28] MEDS ORDERED: Vancomycin Inj 1,500 MG in 0.9% Sodium Chloride 500 ML IV SCH (14:00)
--- NOTE | 2016-03-28 14:20 | NUR ---
Social Work-screening: Data:EMR reviewed. Pt is a 55 y/o female who was admitted on 03/27/16 for pneumonia per H&P. Pt's insurance is [employer] and PCP is Curt Schmid MD. EMR Reviewed. Pt resides at home with her where she remains independent with ADLs. Per RN notes, pt has been up independent in her room. No anticipated discharge needs. SW will continue to follow if needs arise. Assessment:Pt who is independent at baseline. Plan:Pt to discharge home when medically stable via POV. No anticipated discharge needs. SW will continue to follow if needs arise. ARELY Cabral
[2016-03-28] MEDS ORDERED: CHANTIX PO SCH (21:00)
--- NOTE | 2016-03-28 21:23 | PROG NOTE ---
[address] [address] PROGRESS NOTE PATIENT: JM EDMONDSON : 1960 MR#: [id number] ADMIT: 03/27/2016 JOB ID: [id number] DATE: 03/28/2016 REASON FOR CONSULTATION: Unusual pneumonia pattern. INTERVAL HISTORY: The patient is a 55-year-old woman who underwent an elective urologic procedure back on March 24. At that time she had a nephrostomy tube placed on the left side as well as a stent in the ureter. A large staghorn calculus and some other stones were broken up and removed. The patient was sent home with the nephrostomy tube in place but apparently no bag was on it. The idea was there would probably be very little leakage through the nephroscopy and it would simply be a place shine in case it will be needed later. The patient reports, however, that to her surprise the nephrostomy tube produced a great deal of urine and, in fact, more urine was coming out of the left-sided nephrostomy tube than out of her urethra. This was associated with quite severe pain both around the left nephrostomy tube and through her left flank diffusely. Eventually the symptoms became so severe that she reported back and she came back to the emergency department and was admitted late last night. At the time of readmission, she described this pain as 10/10 and the worst basically in her life. In addition to this left flank pain, the patient reported that on or about the date of admission, March 27, she developed fevers, nausea and a cough which was sometimes productive but by and large a dry cough. This was associated with nausea, vomiting, and whenever she vomited, of course, there was increased drainage from the left flank drain. There was no associated diarrhea. She noted there was some degree of dysuria when she urinated through the urethra as well. In the ED, she was found to be febrile and it was initially felt that she was likely having a urologic infection secondary to her recent procedure, but the urine turned out to be fairly clean whereas a chest x-ray showed abnormalities that may suggest this may have been pulmonary rather than a renal source. PAST MEDICAL HISTORY: 1. History of nephrolithiasis and renal infections. 2. Depression and anxiety. 3. Irritable bowel syndrome. 4. GERD. SOCIAL HISTORY: The patient quit drinking several years ago and occasionally uses marijuana for migraines. She reports she quit smoking basically a week or two ago. 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 She lives with her on [address] and her has not been ill. FAMILY HISTORY: Negative for tuberculosis in parents and siblings. REVIEW OF SYSTEMS: Was done. The patient states she has intermittent headaches which she thinks may be migrainous and for which she sometimes uses marijuana. She believes these headaches are due to visual problems and reports that over the past few months she has developed occasional double or crossed vision. She reports that her visual acuity though is quite normal. The patient denies any sore throat or trouble swallowing. She does not have any stiff neck. She denies significant back pain except that related to her recent nephrostomy. She notes she has had some cough though as mentioned has been largely a nonproductive cough. She has had some occasional pleuritic chest pain on both sides and that also just started yesterday along with the cough and fever. The patient has had both nausea and vomiting over the last couple of days. No diarrhea. She has had dysuria and she did have a Howard catheter briefly at the time of her recent urologic procedure on last Sunday. She has had no swelling of the joints. No myalgias, arthralgias, or difficulty with gait.The remainder of the ROS was negative PHYSICAL EXAMINATION: Reveals an afebrile woman, temp 36.9, pulse 88, respiratory rate 18, blood pressure 130/79. She is saturating 90% on room air. She was previously on supplemental oxygen. Examination of mental status feels to be completely clear. Head without trauma. Eyes without conjunctivitis. Oral cavity without thrush or hairy leukoplakia. Neck is supple. Lungs with a few crackles perhaps in the lower areas of both lungs but relatively clear. The patient has nephrostomy tube with bag on it and it is draining basically clear yellow fluid. This nephrostomy tube is on the left side. She has some mild left flank tenderness, but this is reportedly much better than yesterday. No abdominal tenderness to palpation or ascites is noted. Patient does not have a Howard catheter nor does she have suprapubic fullness. Her extremities are without edema, cellulitis or synovitis. Neurologically she is intact with good motor strength. Normal sensation. LABORATORIES: Include a white count 12,000 yesterday, now 7000. The diff both days has been relatively normal. The patient has two procalcitonin levels basically both at 0.1 which would tend to make bacterial pneumonia very unlikely. Creatinine is 0.56. LFTs are normal. Urinalysis on admission: No white cells, a few red cells. Urine Legionella and pneumococcal antigens are negative. Respiratory viral PCR panel negative. MRSA screen is pending. Influenza screen negative. IMAGING: Includes an abdominal CT done on admission yesterday which shows patchy alveolar pattern in the bases bilaterally. There is also a pattern of left urothelial enhancement with perinephric edema without obstruction. Some small fragments remaining within the lower collecting system of the left kidney, some up to 3 mm. Small amount of free fluid is seen in the pelvis. The gallbladder is poorly visualized. A chest x-ray done today was carefully reviewed, and I compared it to a chest x-ray done on the which was basically normal. Today's x-ray shows a very mild patchy pulmonary infiltrate picture. This is fairly subtle and bilateral, but it is different than the one done five days previously preoperatively. IMPRESSION: This patient underwent a urologic procedure some four days ago in which a nephrostomy was placed as well as a stent. Postoperatively, she went home with this hardware in place but has developed a very severe left flank pain as well as uncontrolled drainage of urine from the nephrostomy tube which did not have a bag on it. Because of the pain and to some degree the leakage, she came back to the ED and was readmitted. Almost parenthetically, the patient mentioned some low-grade fevers as well as a dry cough. A chest x-ray done yesterday compared to one done back March 22 preoperatively shows bilateral alveolar infiltrates which could be a sign of early pneumonia, congestive heart failure or perhaps a viral process rather than bacterial pneumonia. The patient's white count is unimpressive as is her fever curve. She did have a single fever to 38.7 when she first came in but she is now afebrile consistently and her procalcitonins are basically negative x2 which would argue against bacterial pneumonia. Nonetheless, the patient does have unusual pulmonary pattern which I suppose could represent an atypical pneumonia. It appears she does not have urologic infection. RECOMMENDATIONS: 1. I would discontinue both the cefepime and vancomycin she has been receiving as I think these are overly broad coverage. 2. An oral quinolone, an agent I usually prefer not to use in the hospital, should provide good coverage for both atypical pulmonary infections as well as some urinary tract coverage while this is all sorted out. A dose of 750 for five days or so should be adequate. 3. I will continue to follow this case with you, but I suspect we will have a very successful resolution of this case going forward. [facility]
[2016-03-29] VITALS (8 sets, daily range): BP systolic 106–146; BP diastolic 70–89; PULSE 75–85; RESP 16–18; O2SAT 94–95
[2016-03-29] MEDS: oxyCODONE-Acetamin 5-325 mg Tablet PO PRN ×5 (00:54→20:56)
[2016-03-29] MEDS: Heparin 5,000 Unit/mL Inj SUBQ SCH ×3 (00:58→16:38)
--- NOTE | 2016-03-29 01:12 | NUR ---
Sputum specimen cup at bedside, patient aware we need a sputum sample.
[2016-03-29 06:58] LABS: BASOPHILS % (AUTO) 0.7 % (0-3); EOSINOPHILS % (AUTO) 6.9 % (0-5); MONOCYTES % (AUTO) 7.6 % (4-12); Mean Corpuscular Hemoglobin 31.6 pg (27.0-35.0); Mean Corpuscular Volume 93.4 fL (81-100); NEUTROPHILS % (AUTO) 54.3 % (40-74); Platelet Count 268 bil/L (150-400)
[2016-03-29] MEDS: buPROPion SR 150 mg ER12 Tablet PO SCH ×2 (08:21→20:15)
[2016-03-29] MEDS: Pantoprazole 40 mg ER24 Tablet PO SCH (08:21)
[2016-03-29] MEDS: guaiFENesin 600 mg ER12 Tablet PO SCH ×2 (08:21→20:15)
[2016-03-29] MEDS: levoFLOXacin 750 mg Tablet PO SCH (08:22)
[2016-03-29] MEDS: Polyethylene Glycol (PEG) 17 Gm Powder PO SCH (08:22)
[2016-03-29] MEDS: DULoxetine 30 mg DR Capsule PO SCH (08:22)
--- NOTE | 2016-03-29 10:05 | DRSVH ---
PROCEDURE: X-RAY CHEST, TWO VIEWS ([id number]) INDICATIONS: HCAP TECHNIQUE: 2 views of the chest were acquired. COMPARISON: [facility], CR, XR CHEST 2VW, 03/27/2016, 17:24. FINDINGS: Surgical changes and devices: None. Lungs and pleura: Small right pleural effusion is present and patchy densities seen bilaterally on pr ior examination have decreased. Mediastinum: Mediastinal contours are normal. Heart size is normal. Bones and chest wall: No suspicious bony abnormalities. Soft tissues appear unremarkable. IMPRESSION: Resolving pneumonia and small right pleural effusion. Dictated by: Juan Colby RRA Interpreted: Nakia Gr MD on 03/29/2016 at 10:03 Transcribed by: JULIA on 03/29/2016 at 10:04 Approved by: Nakia Gr MD, PhD on 03/29/2016 at 17:07
[2016-03-29] MEDS ORDERED: Sodium Chloride NAS 45 mL Spray NASAL PRN (11:25)
--- NOTE | 2016-03-29 11:37 | PROG NOTE ---
[address] [address] PROGRESS NOTE PATIENT: JM EDMONDSON : 1960 MR#: [id number] ADMIT: 03/27/2016 JOB ID: [id number] DATE: 03/29/2016 REASON FOR FOLLOWUP: Pneumonia. INTERVAL HISTORY: Recall this is a patient I saw yesterday who underwent an elective urologic procedure back on March 24 and had considerable drainage from the nephrostomy tube that was left in place as well as severe left flank pain. When she was admitted here, it was also noted that she was somewhat short of breath and had unusual bilateral alveolar type infiltrates. Yesterday, we decided to downsize her antibiotics to levofloxacin orally alone and to watch her closely. Today, the patient reports no fevers, chills or sweats. She is a little bit short of breath she says at rest, but she has no cough and no pleuritic chest pain. Her left flank pain persists but it is improved. She is having some cranberry-colored drainage from her nephrostomy tube. PHYSICAL EXAMINATION: Reveals a woman who is completely afebrile. Note she was febrile on the but has now been afebrile for 48 hours. Temperature 36.8, pulse 78, respiratory rate 18, blood pressure 132/76. She is saturating 95% on room air. Examination of the oral cavity is unremarkable. The lungs quite clear bilaterally today. Cardiac tones: Regular rate and rhythm without murmur. The abdomen is soft and without tenderness. The nephrostomy tube is draining a dark red urine. The flank pain has diminished overnight but still somewhat tender. LABORATORIES: Include a white count of 7400, 7% eosinophils. Creatinine 0.53. LFTs are normal. Albumin 3.3. Urinalysis without white cells. Nasopharyngeal PCR is negative. MRSA screen negative. Pneumococcal urine antigen and blood cultures are negative. The repeat chest x-ray done this morning shows a resolving pneumonia. IMPRESSION: This patient had quite an atypical pneumonia pattern which may or may not have represented a true infection, but in any event, is regressing with levofloxacin. It is also unclear whether or not she had a urinary tract infection but I believe that she did not. RECOMMENDATIONS: 1. Continue with levo for about a five day course at a dose of 750 once a day. 2. Note that her QTc interval is normal and so I am not concerned about QTc prolongation unduly in this case. 3. ID will go ahead and sign off at this time as I see no active ID issues. Thank you very much for the consult.
--- NOTE | 2016-03-29 11:56 | NUR ---
Bloody nose Patient was bleeding from nose. Patient was informed to squeeze bridge of nose and lean head forward. Bleeding stopped shortly after. MD informed and ordered saline nasal spray PRN.
[2016-03-29] MEDS ORDERED: Vancomycin Serum Trough XX ONE (13:30)
--- NOTE | 2016-03-29 16:03 | PCM.PNMED ---
Subjective Date of Service Mar 29, 2016 Subjective Pt is a 55 y/o female presenting to the ED c/o postoperative complications that started the day of admission. The patient had a left kidney surgery on Mar [address] Lisbeth Sidhu MD because of a staghorn calculus in which a left-sided nephrostomy tube and left-sided ureteral stent was placed. She was concerned about the drainage which appears normal however patient met sepsis criteria for temperature and WBC of 12,000. She was found to have bilateral patchy infiltrates on chest x-ray and started on antibiotics. This morning patient is doing better, her pain is controlled with oral pain medication. She did have an episode of a bloody nose that self resolved this morning. She is having less difficulty breathing this morning. Exam Vital Signs Vital Sign - Last Date Time Temp Pulse Resp B/P Pulse Ox O2 Delivery O2 Flow Rate FiO2 03/29/16 05:54 36.7 83 16 121/76 94 Room Air 03/28/16 04:20 2.00 Intake and Output 03/28/16 03/28/16 03/29/16 Cumulative From/Thru 15:00 23:00 07:00 03/27/16 14:50 - 03/29/16 06:24 Intake Total 475 ml 1084 ml 300 ml 2409 ml Output Total 1650 ml 900 ml 2550 ml Balance -1175 ml 184 ml 300 ml -141 ml Intake Oral 475 ml 518 ml 300 ml 1293 ml IV Total 566 ml 1116 ml Output Urine Total 1650 ml 900 ml 2550 ml # Voids 5 5 Exam General: Alert and oriented 3, no acute distress HEENT: Normocephalic atraumatic, PERRLA, neck is supple no adenopathy, no JVD, no masses, no erythema, mucous membranes moist Lungs: Clear to auscultation bilaterally. Heart: Regular rate and rhythm no murmur Abdomen: Bowel sounds present, abdomen soft nontender Genitourinary: Intact left flank nephrostomy bag draining pink serosanguineous fluid, mild costovertebral angle tenderness bilaterally Extremities: Pulses equal and symmetric bilaterally upper/lower extremity, no edema Neurologic: Cranial nerves II through XII grossly intact IVs and Medications Medications Reviewed: Medications were reviewed in detail Lab and Diagnostics Result Diagram: 03/28/1655 03/28/16654 X-Rays, CTs and MRIs PROCEDURE: X-RAY CHEST, TWO VIEWS ([id number]) IMPRESSION: Mild bilateral patchy pneumonia pattern. Dictated by: Jayro Barriga M.D. on 03/27/2016 at 18:15 PROCEDURE: CT ABDOMEN AND PELVIS WITH CONTRAST ([id number]) IMPRESSION: A pattern of left urothelial enhancement and thickening and perinephric edema is present, without evidence of urinary tract obstruction in a pattern that likely reflects some form of urologic intervention removing the large majority of a lower half left renal collecting system staghorn calculus. Several small fragments remain within the lower collecting system of the left kidney, measuring up to 2 x 3 mm. Overlying body wall edema. A small amount of free fluid is seen deep within the pelvis, posteriorly, presumably reactive in origin to the posteriorly urologic intervention recently performed. No abscess is suspected. No urinary tract obstruction is found. The gallbladder is somewhat poorly visualized in terms of its margins, and depending on the clinical status gallbladder ultrasound may be warranted. No calcified gallstone biliary distention is seen. The mild indistinct margination of the gallbladder wall may simply represent motion artifact during image acquisition. Dictated by: Jayro Barriga M.D. on 03/27/2016 at 17:58 PROCEDURE: X-RAY CHEST, TWO VIEWS ([id number]) IMPRESSION: Resolving pneumonia and small right pleural effusion. Dictated by: Juan Colby RR Interpreted: Nakia Gr MD on 03/29/2016 at 10:03 12-lead ECG sinus rhythm at a rate of 78 Assessment & Plan This is a 55 y/o F presented to the ED with c/o postoperative complications s/p left flank nephrostomy and left ureteral stent that she noticed on the day of admission. Surgery was on Mar 24. Patient was found to have elevated WBC' s12.0 and CXR significant for b/l pneumonia. Patient was admitted for healthcare acquired pneumonia. 1. Acute Sepsis, present on admission, active -Source is likely pneumonia given XCR results, and negative UA -WBC 12,000 could be reactive from procedure, infectious also on differential -Vital signs in the ED temperature 38.7, BP 112/76, pulse 97, respiratory rate 16, O2 sat 86% on room air. -IV fluid bolus of 1 L given in the emergency department, adequate oral intake of fluid. -Antibiotics converted to oral levofloxacin 750 mg daily for a five-day course to be completed on 04/02/2016 -Infectious disease consult team, we appreciate their input. 2. HCAP, present on admission, active, improving -CBC with Diff showed elevated white count 12.0, CMP within normal limits, UA positive for large occult blood, -CXR (+ Mild bilateral patchy pneumonia pattern. Resolving per Chest x-ray today) -Blood Cx X 2 negative after 24 hours of growth -Procalcitonin 0.11, repeat 0.10 -vancomycin and cefepime discontinued -Acetaminophen for fever control -IV Saline fluids if needed for hypotension, not necessary at this time -Sputum cx ordered and pending -Viral PCR negative -Legionella, strep pneumo urine antigen both negative 3. Status post left flank nephrostomy and ureteral stent, present on admission, active -Surgery was on Mar 24 -CT abdomen pelvis:A left urothelial enhancement and thickening and perinephric edema is present, without evidence of urinary tract obstruction in a pattern that likely reflects some form of urologic intervention removing the large majority of a lower half left renal collecting system staghorn calculus. Several small fragments remain within the lower collecting system of the left kidney, measuring up to 2 x 3 mm. Overlying body wall edema. A small amount of free fluid is seen deep within the pelvis, posteriorly, presumably reactive in origin to the posteriorly urologic intervention recently performed. No abscess is suspected. No urinary tract obstruction is found. -Per urology patient's symptoms of flank pain and signs of drainage are to be expected given her recent procedure. -Pain control 1-2 Percocet 5/325 mg every 4 hours when necessary -We will continue to monitor -Urology follow-up outpatient Chronic Problems 4. Anxiety/Depression, stable -Continue home medication 5. Gallbladder disease, stable 6. IBS, stable 7. Dumping syndrome, stable 8. GERD, stable -Continue home medication 9. Former Smoker, stable -Nicotine patch Disposition: Patient was admitted for healthcare associated pneumonia and fever. CODE STATUS: Full code subQ Heparin 5000 units Q8H Bowel care with Colace and MiraLAX senna when necessary Curt Schmid (PCP) GI Prophylaxis: Proton Pump Inhibitor VTE Prophylaxis: Sub-Q Heparin (Unfractionated) VTE Mechanical Devices: Intermittant Pneumatic CD Resuscitation Status: CPR: Attempt Resuscitation Attending Statement The patient was seen and examined together with Dr. Martinez on 03/29/2016 and I agree with the history, exam and plan as outlined in the note above. Jeanette Martinez DO Mar 29, 2016 06:33 Epifanio De Souza MD Mar 30, 2016 10:21
[2016-03-30 00:49] VITALS: BP 124/74; PULSE 83; RESP 18; O2SAT 93
[2016-03-30] MEDS: Heparin 5,000 Unit/mL Inj SUBQ SCH ×2 (00:56→07:40)
[2016-03-30] MEDS: oxyCODONE-Acetamin 5-325 mg Tablet PO PRN ×3 (00:56→11:17)
--- NOTE | 2016-03-30 05:54 | NUR ---
Pain able to sleep most of the night without c/o pain.
[2016-03-30 06:14] VITALS: BP 154/83; PULSE 72; RESP 16; O2SAT 94
[2016-03-30] MEDS: Pantoprazole 40 mg ER24 Tablet PO SCH (06:38)
[2016-03-30] MEDS: buPROPion SR 150 mg ER12 Tablet PO SCH (07:39)
[2016-03-30] MEDS: DULoxetine 30 mg DR Capsule PO SCH (07:39)
[2016-03-30] MEDS: guaiFENesin 600 mg ER12 Tablet PO SCH (07:39)
[2016-03-30] MEDS: levoFLOXacin 750 mg Tablet PO SCH (07:39)
[2016-03-30] MEDS: Polyethylene Glycol (PEG) 17 Gm Powder PO SCH (07:40)
[2016-03-30 08:00] VITALS: PULSE 76
[2016-03-30] MEDS ORDERED: LEVO750T9 PO (08:27)
--- NOTE | 2016-03-30 10:09 | PCM.DIMED ---
Jeanette Martinez DO 03/30/16 0826: Discharge Instructions Date of Service Mar 30, 2016 Dates of Hospitalization Mar 27, 2016 at 21:04 Discharge Diagnosis Discharge Diagnosis Health care associated pneumonia Medication Instructions Take the antibiotic levofloxacin for 3 more days. Diet No restrictions Activity No restrictions Call your provider Fever or Chills, Shortness of breath, Chest pain, Excessive diarrhea, Weakness ( unilateral) Patient Instructions You have a pneumonia that is resolving. Take it easy for the next few days as you will continue to recover. Follow-up plan follow up with your primary care provider in one week. Follow-up with your urologist in 1 week as well Follow-up Provider: Curt Schmid Follow-up with PCP in: 1 week Provider: Lisbeth Sidhu MD Follow-up in: 2 weeks Epifanio De Souza MD 03/30/16 1022: Jeanette Martinez DO Mar 30, 2016 08:26 Epifanio De Souza MD Mar 30, 2016 10:22
[2016-03-30 10:41] VITALS: BP 127/78; PULSE 92; RESP 18; O2SAT 96
--- NOTE | 2016-03-30 11:29 | NUR ---
Social Work: Discharge Data: Pt is on day 3 of hospitalization. EMR reviewed. D/C orders are in. No further d/c planning needs anticipated at this time. DOCK GRADER will continue to follow if needs arise. Assessment: Pt who is independent at baseline. Plan: Pt will d/c home today via POV. No further d/c planning needs anticipated at this time. DOCK GRADER will continue to follow if needs arise. AERLY Britt
--- NOTE | 2016-03-30 12:58 | NUR ---
Discharge Patient given discharge orders. Patient IV removed fully intact and asymptomatic. Patient given medication list with written and verbal instructions when next dose is due. Patient given informational packet. Patient given information on follow up care needed. Patient in room at time of discharge. Patient was assisted to main entrance by director industrial nursing in wheelchair at time of discharge. Patient left with all personal belongings.
--- NOTE | 2016-03-30 20:22 | PCM.DC.MED ---
Discharge Summary Date of Service Mar 30, 2016 Dates of Hospitalization Date of Hospital Admission Mar 27, 2016 at 21:04 Date of Discharge: Mar 30, 2016 Providers: Admitting Physician: Tri Chaves DO Primary Care Physician: Curt Schmid Attending Physician: Tri Chaves DO Diagnosis at Time of Discharge Diagnosis at Time of Discharge 1. Health care associated pneumonia 2. Acute sepsis, present on admission, resolved 3. Status post post left flank nephrostomy and ureteral stent, present on admission Consultations Infectious disease for healthcare associated pneumonia Procedures XRay, CTs & MRIs PROCEDURE: X-RAY CHEST, TWO VIEWS ([id number]) IMPRESSION: Mild bilateral patchy pneumonia pattern. Dictated by: Jayro Barriga M.D. on 03/27/2016 at 18:15 PROCEDURE: CT ABDOMEN AND PELVIS WITH CONTRAST ([id number]) IMPRESSION: A pattern of left urothelial enhancement and thickening and perinephric edema is present, without evidence of urinary tract obstruction in a pattern that likely reflects some form of urologic intervention removing the large majority of a lower half left renal collecting system staghorn calculus. Several small fragments remain within the lower collecting system of the left kidney, measuring up to 2 x 3 mm. Overlying body wall edema. A small amount of free fluid is seen deep within the pelvis, posteriorly, presumably reactive in origin to the posteriorly urologic intervention recently performed. No abscess is suspected. No urinary tract obstruction is found. The gallbladder is somewhat poorly visualized in terms of its margins, and depending on the clinical status gallbladder ultrasound may be warranted. No calcified gallstone biliary distention is seen. The mild indistinct margination of the gallbladder wall may simply represent motion artifact during image acquisition. Dictated by: Jayro Barriga M.D. on 03/27/2016 at 17:58 PROCEDURE: X-RAY CHEST, TWO VIEWS ([id number]) IMPRESSION: Resolving pneumonia and small right pleural effusion. Dictated by: Juan Colby [facility] Interpreted: Nakia Gr MD on 03/29/2016 at 10:03 ECG 12 Lead sinus rhythm at a rate of 78 Brief History History of present illness on admission: Pt is a 55 y/o female presenting to the ED c/o postoperative complications onset today. The patient had a left kidney surgery on Mar [address] Lisbeth Sidhu MD because of a staghorn calculus in which a left-sided nephrostomy tube and left-sided ureteral stent was placed. The patient came in today because of increasing left flank pain rated 10 out of 10 in this worst and both sharp and dull, urinary incontinence, fever, cough productive green sputum onset 3 days ago, nausea, vomiting and drainage from the incision in her left flank. Her drainage is described as serosanguineous and purulent. Currently denies abdominal pain, dysuria, nausea, vomiting. Vital signs in the ED temperature 38.7, pulse 97, respiratory rate 16, O2 sat 86 % on room air. Chemistry panel: Sodium 138, potassium 3.6, chloride 96, carbon dioxide 27, creatinine 0.68, Actiq acid 0.9, and otherwise normal chemistry panel Hemogram: Blood cells 12.0, neutrophils 77.5, lymphs 13.1 UA: Significant for occult blood large Influenza screen was negative. Hospital Course This is a 55 y/o F presented to the ED with c/o postoperative complications s/p left flank nephrostomy and left ureteral stent that she noticed on the day of admission. Surgery was on Mar 24. Patient was found to have elevated WBC' s12.0 and CXR significant for b/l pneumonia. Patient was admitted for healthcare acquired pneumonia. 1. Acute Sepsis, present on admission, active -Source is likely pneumonia given XCR results, and negative UA -WBC 12,000 could be reactive from procedure -Vital signs in the ED temperature 38.7, BP 112/76, pulse 97, respiratory rate 16, O2 sat 86% on room air. -IV fluid bolus of 1 L given in the emergency department, adequate oral intake of fluid. -Antibiotics converted to oral levofloxacin 750 mg daily for a five-day course to be completed on 04/02/2016 -Infectious disease consult team, we appreciate their input. 2. HCAP, present on admission, active, improving -CBC with Diff showed elevated white count 12.0, CMP within normal limits, UA positive for large occult blood, -CXR (+ Mild bilateral patchy pneumonia pattern. Resolving per repeat Chest x- ray ) -Blood Cx X 2 negative after 24 hours of growth -Procalcitonin 0.11, repeat 0.10 -vancomycin and cefepime discontinued -Acetaminophen for fever control -IV Saline fluids if needed for hypotension, not necessary at this time -Sputum cx ordered and pending -Viral PCR negative -Legionella, strep pneumo urine antigen both negative 3. Status post left flank nephrostomy and ureteral stent, present on admission, active -Surgery was on Mar 24 -CT abdomen pelvis:A left urothelial enhancement and thickening and perinephric edema is present, without evidence of urinary tract obstruction in a pattern that likely reflects some form of urologic intervention removing the large majority of a lower half left renal collecting system staghorn calculus. Several small fragments remain within the lower collecting system of the left kidney, measuring up to 2 x 3 mm. Overlying body wall edema. A small amount of free fluid is seen deep within the pelvis, posteriorly, presumably reactive in origin to the posteriorly urologic intervention recently performed. No abscess is suspected. No urinary tract obstruction is found. -Per urology patient's symptoms of flank pain and signs of drainage are to be expected given her recent procedure. -Pain control 1-2 Percocet 5/325 mg every 4 hours when necessary -Urology follow-up outpatient Chronic Problems, no changes made 4. Anxiety/Depression, stable -Continue home medication 5. Gallbladder disease, stable 6. IBS, stable 7. Dumping syndrome, stable 8. GERD, stable -Continue home medication 9. Former Smoker, stable -Nicotine patch Exam Vital Signs (Last) Date Time Temp Pulse Resp B/P Pulse Ox O2 Delivery O2 Flow Rate FiO2 03/30/16 06:14 36.9 72 16 154/83 94 Room Air 03/28/16 04:20 2.00 Exam General: Alert and oriented 3, no acute distress HEENT: Normocephalic atraumatic, PERRLA, neck is supple no adenopathy, no JVD, no masses, no erythema, mucous membranes moist Lungs: Clear to auscultation bilaterally. Heart: Regular rate and rhythm no murmur Abdomen: Bowel sounds present, abdomen soft nontender Genitourinary: Intact left flank nephrostomy bag draining pink serosanguineous fluid Extremities: no edema Neurologic: Cranial nerves II through XII grossly intact Test 03/27/16 15:25 03/27/16 16:10 03/27/16 18:45 03/27/16 21:58 Hold Purple Top Tube Received (Received) Hold Blue Top Tube Received (Received) Magnesium Level 1.7mg/dL (1.6-2.6) Lipase 11U/L (13-60) Hold Red Top Tube Received (Received) Hold Palmer Top Tube Received (Received) Lactic Acid Level 0.9mmol/L (0.4-2.0) Urine Color Yellow (YELLOW) Urine Appearance Hazy (CLEAR,HAZY) Urine pH 7.5 (5.0-8.0) Urine Specific Kidder 1.010 (1.003-1.035) Urine Protein Tracemg/dL (NEG,TRACE) Urine Glucose (UA) Negativemg/dL (NEGATIVE) Urine Ketones 15mg/dL (NEGATIVE) Urine Occult Blood Large (NEGATIVE) Urine Nitrite Negative (NEGATIVE) Urine Bilirubin Negative (NEGATIVE) Urine Urobilinogen Normalmg/dL (NORMAL) Urine Leukocyte Esterase Negative (NEGATIVE) Urine RBC 3-10/hpf (0-2) Urine WBC 0-5/hpf (0-5) Urine Epithelial Cells None/hpf (NONE-MOD) Urine Crystals None seen (NONE SEEN) Urine Bacteria None/hpf (NONE-FEW) Urine Hyaline Casts None/lpf (NONE) Urine Granular Casts None seen (NONE SEEN) Urine Waxy Casts None seen (NONE SEEN) Urine Red Blood Cell Casts None seen (NONE SEEN) Urine White Blood Cell Casts None seen (NONE SEEN) Urine Mucus None seen (None Seen) Urine Trichomonas None seen (NONE SEEN) Urine Yeast None (NONE SEEN) Urinalysis Comment None Urine Culture Reflexed Not indicated Urine Legionella pneumophilia Ag Negative (Negative) Test 03/27/16 23:00 03/28/16 06:55 03/29/16 06:03 03/30/16 06:00 Hold Urine Received (Received) Procalcitonin 0.10ng/mL (0.00-0.08) White Blood Count 7.4th/mm3 (3.8-10.1) Red Blood Count 3.48mil/mm3 (3.90-5.20) Hemoglobin 11.0g/dL (12.0-15.6) Hematocrit 32.5% (35.0-46.0) Mean Corpuscular Volume 93.4fL (81-100) Mean Corpuscular Hemoglobin 31.6pg (27.0-35.0) Mean Corpuscular Hemoglobin Concent 33.8% (32.0-37.0) Red Cell Distribution Width 11.9% (12.3-15.4) Platelet Count 268bil/L (150-400) Neutrophils (%) (Auto) 54.3% (40-74) Lymphocytes (%) (Auto) 30.4% (14-46) Monocytes (%) (Auto) 7.6% (4-12) Eosinophils (%) (Auto) 6.9% (0-5) Basophils (%) (Auto) 0.7% (0-3) Total Bilirubin 0.2mg/dL (0.0-1.2) Aspartate Amino Transf (AST/SGOT) 15U/L (0-50) Alanine Aminotransferase (ALT/SGPT) 10U/L (0-32) Alkaline Phosphatase 62U/L (25-150) Total Protein 5.2g/dL (6.4-8.4) Albumin 3.3g/dL (3.4-5.0) Sodium Level 143mEq/L (134-144) Potassium Level 3.9mEq/L (3.5-5.2) Chloride Level 104mEq/L (97-108) Carbon Dioxide Level 26mmol/L (18-29) Blood Urea Nitrogen 7mg/dL (6-24) Creatinine 0.54mg/dL (0.57-1.00) Estimat Glomerular Filtration Rate 169mL/min (>59) Glucose Level 88mg/dL (60-99) Calcium Level 8.6mg/dL (8.5-10.1) Discharge Medications Discharge Medications ([chantix]) Unknown Strength 10 MG PO HS (Reported) for 3 days Bupropion ER (Bupropion ER) 150 Mg Tablet.er 150 MG PO BID (Reported) Cholecalciferol (Vitamin D3) (Vitamin D3) 4,000 Unit Capsule 4,000 UNIT PO DAILY (Reported) Duloxetine (Duloxetine) 60 Mg Capsule.dr 60 MG PO DAILY (Reported) Levofloxacin (Levaquin) 750 Mg Tablet 750 MG PO DAILYAC Prescribed by: GRETTA ROBLES DO Omeprazole (Omeprazole) 20 Mg Capsule.dr 20 MG PO DAILY (Reported) Sennosides (Senna) 8.6 Mg Tablet 17.2 MG PO HS Prescribed by: DAVID العراقي As needed Dicyclomine (Dicyclomine) 20 Mg Tablet 20 MG PO QID PRN PRN For GI Cramps ( Reported) Hydrocodone-Acetaminophen 10-325 mg (Hydrocodone-Acetaminophen 10-325 mg) 1 Each Tablet 0.5-1 TABLET PO Q8H PRN PRN For Pain (Reported) Ondansetron ODT (Ondansetron ODT) 8 Mg Tab.rapdis 8 MG PO [id number] PRN PRN For Nausea (Reported) Sumatriptan (Imitrex) 100 Mg Tablet 100 MG PO Q2H PRN PRN migraine (Reported) MR x1/ NTE 200mg/24hrs Followup Plan Disposition: Discharge home Follow-up plan Take the antibiotic levofloxacin for 3 more days. Discharge Diet: No restrictions Discharge Activity: No restrictions Patient Instructions You have a pneumonia that is resolving. Take it easy for the next few days as you will continue to recover. Follow-up Provider: Curt Schmid Follow-up with PCP in: 1 week Provider: Lisbeth Sidhu MD Follow-up in: 2 weeks Time spent 35 minutes Attending Statement The patient was seen and examined together with Dr. Robles on 03/30/2016 and I agree with the history, exam and plan as outlined in the note above. copies to: Curt Schmid; Lisbeth Sidhu MD, Erika R DO Mar 30, 2016 07:33 Epifanio De Souza MD Mar 31, 2016 12:06
[2016-06-05] MEDS ORDERED: IMI100 PO (16:48)
[2016-06-05] MEDS ORDERED: DULO60CA61 PO (16:48)
[2016-06-05] MEDS ORDERED: ACYC400T2 PO (16:48)
[2016-06-05] MEDS ORDERED: [UNRECOGNIZED DRUG - CODE] PO (16:48)
[2016-06-05] MEDS ORDERED: BUPR150T12 PO (16:48)
[2016-06-05] MEDS ORDERED: TRAZ-118 PO (16:48)
[2016-06-05] MEDS ORDERED: VARE1TAB22 PO (16:48)
[2016-06-05] MEDS ORDERED: CHOL40003 PO (16:48)
[2016-06-05] MEDS ORDERED: DICY20TA10 PO (16:48)
[2016-06-05] MEDS ORDERED: OMEP20CA11 PO (16:48)
== END 2016-03-30 12:57 | disposition home or self-care (01) | DRG 871 ==
LOC: SED 14:24 → MPC 21:04
PROVIDERS: ADMIT Internal Medicine; ATTEND Internal Medicine
DX: A41.9 Sepsis, unspecified organism (principal); J18.9 Pneumonia, unspecified organism; Z87.891 Personal history of nicotine dependence; F41.9 Anxiety disorder, unspecified; F32.9 Major depressive disorder, single episode, unspecified; K21.9 Gastro-esophageal reflux disease without esophagitis

== ENCOUNTER 2016-06-08 07:42 | Day surgery (SDC) | payer OTHER ==
[~2016-06-08] VITALS: Ht 167.6 cm; Wt 85.2 kg
[2016-06-08] VITALS (9 sets, daily range): BP systolic 103–122; BP diastolic 56–72; PULSE 68–82; RESP 11–17; O2SAT 93–95
[~2016-06-08 07:42] MED LIST changes: +ACYC400T2 PO; +CeFAZolin Inj 2 GM in IV Premix 1 EACH IV ONE; -HYDR-3740 PO; -SENN-133 PO; +TRAZ-118 PO; +VARE1TAB22 PO; -chantix PO
[2016-06-08] MEDS ORDERED: fentaNYL-PF 50 mCg/mL 2 mL Inj ONE (07:43)
[2016-06-08] MEDS ORDERED: Propofol 10,000 mCg/mL 20 mL Inj ONE (07:43)
[2016-06-08] MEDS ORDERED: Ondansetron 2 mg/mL 2 mL Inj ONE (07:43)
[2016-06-08] MEDS: Lactated Ringer's 1,000 ML IV SCH ×2 (08:01→09:24)
[2016-06-08] MEDS ORDERED: Lactated Ringer's 500 ML IV PRN (09:43)
[2016-06-08] MEDS ORDERED: Lactated Ringer's 1,000 ML IV SCH (09:43)
[2016-06-08] MEDS ORDERED: Ondansetron 2 mg/mL 2 mL Inj IVPUSH PRN (09:45)
[2016-06-08] MEDS ORDERED: Atropine 0.4 mg/mL Inj IVPUSH PRN (09:45)
[2016-06-08] MEDS ORDERED: Dexamethasone 4 mg/mL Inj IVPUSH PRN (09:45)
[2016-06-08] MEDS ORDERED: MetoCLOpramide 5 mg/mL 2 mL Inj IVPUSH PRN (09:45)
[2016-06-08] MEDS ORDERED: Labetalol 5 mg/mL 4 mL Inj IV PRN (09:45)
[2016-06-08] MEDS ORDERED: fentaNYL-PF 50 mCg/mL 2 mL Inj IVPUSH PRN (09:45)
[2016-06-08] MEDS ORDERED: Phenylephrine 10,000 mCg/mL Inj IVPUSH PRN (09:45)
[2016-06-08] MEDS ORDERED: EPHEDrine Sulfate 50 mg/mL Inj IVPUSH PRN (09:45)
[2016-06-08] MEDS ORDERED: HYDROmorphone 1 mg/mL Inj IVPUSH PRN (09:45)
[2016-06-08] MEDS ORDERED: HYDROcodone-APAP 5-325 mg Tablet PO PRN (10:00)
--- NOTE | 2016-06-08 10:08 | DRSVH ---
PROCEDURE: X-RAY KUB ([id number]) INDICATIONS: LEFT KIDNEY STONE TECHNIQUE: One view of the abdomen acquired. COMPARISON: [facility], CR, XR KUB, 03/24/2016, 14:36. [facility], CT, CT AB D PELVIS W CON, 03/27/2016, 17:09. [facility], CR, XR ABD AP 1VW, 05/11/2016, 13:17. FINDINGS: Surgical changes and devices: None. Bowel: Bowel gas pattern is normal. Soft tissues: Several small calcifications, with the largest measuring 5 mm again seen projected over the left kidney similar to prior KUB. Bones: No suspicious bony lesions. IMPRESSION: Small calcifications projected over the left kidney largest measuring 5 mm similar to delmar or examination. Dictated by: Juan Colby RRA Interpreted: Carolynn Urrutia MD on 06/08/2016 at 10:06 Transcribed by: ADRI on 06/08/2016 at 10:07 Approved by: Carolynn Urrutia M.D. on 06/08/2016 at 10:31
--- NOTE | 2016-06-08 10:46 | PCM.HPANE ---
Patient Data Surgeon Admitting Provider: Attending Provider:Lisbeth Sidhu MD Primary Care Physician:[facility] Other Provider:Stephon James Anesthesia Reason for Visit Left Kidney Stone Ht/WT & BMI Height (Feet): 5 Height (Inches): 6 Weight (Kilograms): 85.2 Body Mass Index 30.00 Allergies Coded Allergies: No Known Allergies (Verified Allergy, Unknown, 03/27/16) Past Anesthesia History Anesthesia History: Denies:: Abnormal Airway, Anesthesia Reactions, Difficult Intubation, Fam Anesthesia Reaction, Fam Malignant Hypertherm, Malignant Hyperthermia Diabetes History Hx Diabetes?: No MRSA MRSA: No Medications Home Meds Incl Beta Iliana: No Reported Medications Trazodone 100 Mg Pipvhs704 Mg PO HS Ref 0 06/05/16 Ondansetron (Zuplenz)8 Mg Film8 Mg PO Q8H PRN For Nausea 06/05/16 Cholecalciferol (Vitamin D3) (Vitamin D3)4,000 Unit Capsule4,000 Unit PO DAILY 06/05/16 Omeprazole 20 Mg Capsule.dr20 Mg PO DAILY Ref 0 06/05/16 Sumatriptan (Imitrex)100 Mg Eibyph830 Mg PO PRN migraines MR q2hr, NTE 200mg/24hr 06/05/16 Duloxetine 60 Mg Capsule.dr60 Mg PO DAILY Ref 0 06/05/16 Dicyclomine 20 Mg Kzscha94 Mg PO QID PRN For GI Cramps Ref 0 06/05/16 Bupropion ER 150 Mg Tablet.er150 Mg PO BID Ref 0 06/05/16 Acyclovir 400 Mg Hdaltn454 Mg PO BID Ref 0 06/05/16 Discontinued Reported Medications Varenicline Tartrate (Chantix)1 Mg Tablet1 Mg PO BID 06/05/16 Ondansetron ODT 8 Mg Tab.rapdis8 Mg PO [id number] PRN For Nausea 03/27/16 Cholecalciferol (Vitamin D3) (Vitamin D3)4,000 Unit Capsule4,000 Unit PO DAILY 03/21/16 Omeprazole 20 Mg Capsule.dr20 Mg PO DAILY Ref 0 03/21/16 Sumatriptan (Imitrex)100 Mg Pkjlhg110 Mg PO Q2H PRN migraine MR x1/ NTE 200mg/24hrs 03/21/16 Hydrocodone-Acetaminophen 10-325 mg 1 Each Tablet0.5-1 Tablet PO Q8H PRN For Pain Ref 0 03/21/16 Duloxetine 60 Mg Capsule.dr60 Mg PO DAILY Ref 0 03/21/16 Dicyclomine 20 Mg Cjuvbg85 Mg PO QID PRN For GI Cramps Ref 0 03/21/16 [chantix] Unknown Strength No Conflict Check10 Mg PO HS for 3 days 03/21/16 Bupropion ER 150 Mg Tablet.er150 Mg PO BID Ref 0 03/21/16 Discontinued Scripts Levofloxacin (Levaquin)750 Mg Mldevx969 Mg PO DAILYAC #3 TABLET Prov:Jeanette Martinez Maria Dolores DO 03/30/16 Sennosides (Senna)8.6 Mg Mjobfl05.2 Mg PO HS #60 TABLET Prov:Marbella Ramsey PA-C 03/26/16 History History of ENT Problems?: No HEENT History: Positive for:: Hearing Problem Denies:: Abnormal Airway Cataracts Difficult Intubation Dysphagia Sinus Problem TMJ Denture Type: None Teeth Condition: Within Normal Limits Hx of Heart Problems?: No Cardiovascular History: Denies:: AICD Abdominal Aortic Aneurism Atrial Fibrillation Cardiac Surgery Chest Pain Congestive Heart Failure Edema Heart Murmur Hypertension Irregular Heartbeat Pacemaker Thrombophlebitis Hx of Respiratory Problem?: Yes Respiratory History: Positive for:: Pneumonia (recent inpt admission for 2016) Denies:: Asthma COPD Chest Surgery Dyspnea Emphysema Hemoptysis Oxygen Administration Tuberculosis Use of C-PAP Machine Hx Neurologic Problems?: Yes Neurological History: Positive for:: Dizziness Headaches (migraines) Denies:: Alzheimer's Disease CVA Dementia Multiple Sclerosis Parkinson's Disease Seizures (seizures with migraines- last one year ago) Hx of GI Problems?: Yes Gastrointestinal History: Positive for:: Gastroesphageal Reflux (on omeprazole ) Gastrointestinal Bleeding Heartburn Rectal Bleeding Denies:: Cirrhosis Diverticulitis Hepatitis Hiatal Hernia Hx of Problems?: Yes Genitourinary History: Positive for:: Kidney Stones (left kidney stone current admission, last surgery here PCNL 03/24/16) Urinary Tract Infection (hx of - not current) Female Hx: Denies:: Currently Problems with Breasts? Skin History: Denies:: History Skin Disorders? Pressure Ulcers Hx Musculoskeletal Problems?: Yes Musculoskeletal History: Positive for:: Back Injury ("lots of back aches") Musculoskeletal Trauma (right knee injury- not yet worked up) Denies:: Degenerative Joint Joint Replacement Systemic Lupus Hx of Psycho/Social Problems?: Yes Psycho Social History: Positive for:: Anxiety Hx Depression Denies:: Bipolar Disorder Hx Surgeries?: Yes (2 C SECTIONS, tubal , PCNL) Hx Any Other Health Problems?: Yes Other History: Positive for:: Hospitalization Denies:: Cancer Thyroid Disease History Blood Transfusions: Denies:: Blood Transfuse Reaction Blood Transfusions Hx Diabetes: No Hx Alcohol Use: No (not for 4-5 years ago )Hx Substance Use: Yes (marijuana ( uses with migraines)) Smoking Status: Former Smoker Have You Smoked inLast 12 mo: Yes Stop/Bang S-Snoring: Do You Snore Loudly: No T-Tired: feel tired, fatigued: Yes O-Obsered: Observed not breath: No P-Blood Pressure: treated: No B- Body Mass Index > 35 kg/m2: No A- Age over 50: Yes N- Neck Large Circumference: No G- Gender Male: No JOSEE Total Score: 2 Risk Assessment Category Category 1A: Patient has history of documented sleep apnea, and HAS NOT received any narcotic, sedative or anesthesia administration during this stay. Category 1B: Patient has history of documented sleep apnea, and HAS received any narcotic , sedative or anesthesia administration during this stay Category 2: Patient has SUSPECTED Obstructive Sleep Apnea, and HAS received any narcotic , sedative or anesthesia administration during this stay. Category 3: Patient has SUSPECTED Obstructive Sleep Apnea and HAS NOT received narcotic, sedative or anesthesia administration during this stay. Category 4: Outpatient in Procedural Areas with known sleep apnea or who screen positive for High Risk via the STOP/BANG questionnaire. Exam Exam Vital Signs Vital Signs Date Time Temp Pulse Resp B/P Pulse Ox O2 Delivery O2 Flow Rate FiO2 06/08/16 08:13 36 81 16 122/65 95 Room Air General Appearance: Alert, Oriented X3, Cooperative, No Acute Distress HEENT/AIRWAY: MP 2 Lungs: Clear to Auscultation, Normal Air Movement Heart: Exam Unremarkable, Regular Rate/Rhythm, No Murmurs/Rubs/Gallops Meds/Labs/Diagnostics Admission Meds Current Medications Lactated Ringer's (Lr) 1,000 ml @ 120 mls/hr Q8H20M IV Last administered on 08:01; Start 06/08/16 at 05:00; Stop 06/08/16 at 13:19 Plan Impression Patient chart reviewed, patient interviewed and anesthestic plan with risks, benefits, and alternatives discussed, and informed consent obtained. ASA Physical Status: ASA2 Mod Systemic Disease Anesthetic Plan: GA Bene/Risks/Altern/Consents: Yes HP Complete Prior to Induction: Yes Gunnar Queen MD Jun 08, 2016 08:40
--- NOTE | 2016-06-08 10:47 | PCM.ANEP1 ---
Post Anesthesia Phase 1 PACU Phase 1 Assessment Vital Signs Vital Signs Date Time Temp Pulse Resp B/P Pulse Ox O2 Delivery O2 Flow Rate FiO2 06/08/16 10:25 82 17 107/59 93 Room Air 06/08/16 10:20 36.5 68 11 107/58 93 Room Air 06/08/16 10:10 70 11 104/56 93 Room Air 06/08/16 10:05 70 12 103/58 93 Room Air 06/08/16 10:00 69 11 105/62 93 Room Air 06/08/16 09:55 69 13 113/72 93 Room Air 06/08/16 09:53 36.1 117/64 06/08/16 08:13 36 81 16 122/65 95 Room Air Anesthetic Administered: GA Level of Alertness: Awake, talking MARTINEZ's with Equal Strength: Yes Pain: Yes Nausea or Vomiting: No Cardiovascular Function and Hy: Yes Lungs: Clear to Auscultation, Normal Air Movement Complications: No Follow up Care: No Patient Instructions Provided: Yes Gunnar Queen MD Jun 08, 2016 10:47
--- NOTE | 2016-06-08 11:16 | OP ---
[address] [address] OPERATIVE REPORT PATIENT: JM EDMONDSON : 1960 MR#: [id number] ADMIT: 06/08/2016 JOB ID: [id number] DATE OF SURGERY: 06/08/2016 PREOPERATIVE DIAGNOSIS(ES): Left kidney stone. POSTOPERATIVE DIAGNOSIS(ES): Left kidney stone. PROCEDURE PERFORMED: Left extracorporeal shockwave lithotripsy. SURGEON: Lisbeth Sidhu MD. HEALTHCARE APPLICATIONS ANALYST: None. FINDINGS: Left lower pole kidney stone. ANESTHESIA: General. ESTIMATED BLOOD LOSS: None. DRAINS: None. SPECIMENS: None. COMPLICATIONS: None. CONDITION: Stable. INDICATION FOR PROCEDURE: The patient is a 56-year-old woman who had previously undergone a left percutaneous nephrolithotomy. She has a retained small stone in the left lower pole. There also is a tiny, fairly nondiscrete fragment in the lower pole there as well but it does not show on KUB. DESCRIPTION OF THE PROCEDURE: After informed consent was obtained, the patient was taken to the operating room. Time-out was performed, identifying correct patient, surgical site, and procedure. General anesthesia was smoothly induced. She was given intravenous antibiotics just prior to the start of the procedure. She was placed in supine position. All pressure points were identified and appropriately padded. She was positioned over the lithotripter device. The stone was localized in the cross hairs of the fluoroscopic device. The stone was submitted to a total of 1500 shocks. There was excellent hazing at a level of 1000 shocks. Ultimately, the power level was achieved to 5. The patient appeared to tolerate the procedure well without apparent complications. She was reversed from general anesthesia and taken to the PACU in good and stable condition. [facility]
== END 2016-06-08 23:59 | disposition home or self-care (01) ==
LOC: SAS 07:42
PROVIDERS: ATTEND Urology
DX: N20.0 Calculus of kidney (principal); K21.9 Gastro-esophageal reflux disease without esophagitis; F41.8 Other specified anxiety disorders; M54.9 Dorsalgia, unspecified; K91.1 Postgastric surgery syndromes; N95.1 Menopausal and female climacteric states
CPT/HCPCS: 50590; 74000; J0690; J7120